=== PATIENT | female | born 1970 | race Caucasian/White ===

== ENCOUNTER 2017-05-03 14:15 | Observation (INO) | payer OTHER ==
[2017-05-03 14:22] VITALS: BMI 19.5
[2017-05-03] MEDS ORDERED: ONDANSETRON 4 MG/2 ML VIAL IVPB ONE (14:26)
[2017-05-03] MEDS ORDERED: SODIUM CHLORIDE 1,000 ML IV ONE ×2 (14:26→18:08)
[2017-05-03] MEDS ORDERED: morphine CARPU-JECT 4 MG/1 ML DISP.SYRIN IVPUSH ONE (14:26)
[2017-05-03] MEDS ORDERED: FAMOTIDINE 20 MG/50 ML IVPB 50 ML IVPB ONE ×2 (14:26→14:42)
--- NOTE | 2017-05-03 14:28 | PDOC ---
History of Present Illness <Jc Cr - Last Filed: 05/03/17 19:17> - General History Source: Patient Exam Limitations: No Limitations - History of Present Illness Initial Comments: 05/03/17 14:44 46 y/o F with a PMHx of chronic gastritis, HTN, cholecystectomy (2007) presents to the ED complaining of severe RUQ pain and vomiting. She states that she cannot keep food or liquid down. She reports associated constipation, and reports her last BM was 6 days ago. Patient reports she had similar symptoms last week and was brought to [facility] via EMS for the pain. She was admitted 6 days ago for her pain and vomiting. According to records, she also had WBCs at 26.8, 16.7 then back to 25 again during her stay last week. She received a CT scan last week at [facility], which showed no abnormalities. She reports she was given antibiotics for her high white count, to treat a possible UTI. She reports that prior to 2 weeks ago, her last gastritis flare up was 2 years ago. Patient is a current smoker, and occasional drinker. The patient denies chest pain, shortness of breath, palpitations, headache and dizziness. The patient denies fever, chills.The patient denies dysuria, frequency, urgency, and hematuria. <Barbra Noel - Last Filed: 05/03/17 19:31> - General Chief Complaint: Pain Stated Complaint: ABD PAIN Time Seen by Provider: 05/03/17 14:15 Past History - Past Medical History GI Disorders: Yes (GASTRITIS) HTN: Yes - Surgical History Cholecystectomy: Yes - Psycho/Social/Smoking Cessation Hx Anxiety: No Suicidal Ideation: No Smoking History: Current every day smoker Have you smoked in the past 12 months: Yes Number of Cigarettes Smoked Daily: 7 Information on smoking cessation initiated: No Hx Alcohol Use: (occasional) <Jc Cr - Last Filed: 05/03/17 19:17> <Barbra Noel - Last Filed: 05/03/17 19:31> - Past Medical History Allergies/Adverse Reactions: Allergies Allergy/AdvReac Type Severity Reaction Status Date / Time No Known Allergies Allergy Verified 05/03/17 14:15 Home Medications: Ambulatory Orders NK [No Known Home Medication] 05/03/17 Review of Systems - Review of Systems Constitutional: Yes: Chills. No: Fever Respiratory: No: Cough, Shortness of Breath Cardiac (ROS): No: Chest Pain ABD/GI: Yes: See HPI, Nausea, Vomiting : No: Dysuria All Other Systems: Reviewed and Negative <TayoJc - Last Filed: 05/03/17 19:17> *Physical Exam - Vital Signs Last Vital Signs Temp Pulse Resp BP Pulse Ox 98.3 F 82 18 158/119 100 05/03/17 14:15 05/03/17 14:15 05/03/17 14:15 05/03/17 14:15 05/03/17 14:15 <Jc Cr - Last Filed: 05/03/17 19:17> - Vital Signs Last Vital Signs Temp Pulse Resp BP Pulse Ox 98.3 F 82 18 158/119 100 05/03/17 14:15 05/03/17 14:15 05/03/17 14:15 05/03/17 14:15 05/03/17 14:15 - Physical Exam Comments: 05/03/17 14:45 GENERAL: The patient is awake, alert, and fully oriented, moderate distress, tearful. HEAD: Normal with no signs of trauma. EYES: Pupils equal, round and reactive to light, extraocular movements intact, sclera anicteric, conjunctiva clear with no pallor. ENT: Ears normal, nares patent, oropharynx clear without exudates. Dry mucous membranes. NECK: Normal range of motion, supple without lymphadenopathy, JVD, or masses. LUNGS: Breath sounds equal, clear to auscultation bilaterally. No wheeze/ crackles. HEART: Regular rate and rhythm, normal S1 and S2 without murmur or rub. ABDOMEN: Tender across upper region. Soft/nondistended. BS are normal to decreased. No guarding or rebound. No palpable masses. No hepatosplenomegaly. EXTREMITIES: Normal range of motion, no edema. No clubbing or cyanosis. No cords, erythema, or tenderness. NEUROLOGICAL: Cranial nerves II through XII grossly intact. Normal speech, normal gait. PSYCH: Normal mood, normal affect. SKIN: Warm, Dry, normal turgor, no rashes or lesions noted. <Barbra Noel - Last Filed: 05/03/17 19:31> Heart Score/ECG Review #1 ECG reviewed & interpreted by me at: 14:39 General ECG Interpretation: Sinus Rhythm, Normal Rate (100), Normal Intervals ( QTC prolonged at 516), No acute ischemic changes #2 ECG reviewed & interpreted by me at: 18:20 General ECG Interpretation: Sinus Rhythm, Normal Rate (86), Normal Intervals ( qtc slightly improved at 497), No acute ischemic changes <Jc Cr - Last Filed: 05/03/17 19:17> ED Treatment Course - LABORATORY CBC & Chemistry Diagram: 05/03/17 14:26 05/03/17 14:26 <Jc Cr - Last Filed: 05/03/17 19:17> - LABORATORY CBC & Chemistry Diagram: 05/03/17 14:26 05/03/17 14:26 - RADIOLOGY Radiograph Interpretation: 05/03/17 16:21 Abdomen X-Ray and Chest X-Ray Reported by Dr. Dudley Monterroso Impressions: Normal chest films. No free air noted. 05/03/17 19:27 Abdomen & Pelvis CT Reported by Dr. Ubaldo Graves Impression: Nondistention of the gastric antrum with suggestion of wall thickening. Further evaluation with an upper GI or CT scan of the abdomen following adequate oral contrast administration is needed. There is no evidence of small bowel obstruction. Diverticulosis coli in the proximal and mid sigmoid colon without gross evidence of acute diverticulitis. However, the sigmoid colon in inadequately distended and wall thickening cannot be entirely excluded. No free air or free fluid in the abdomen pelvis. 5 mm nonobstructing left renal stone. Status post cholecystectomy <Barbra Noel - Last Filed: 05/03/17 19:31> Medical Decision Making - Medical Decision Making 05/03/17 15:10 46-year-old female with history of chronic gastritis and hypertension status post recent admission to [facility] last week for gastritis flare presents now with exacerbation of her epigastric pain with intractable nausea/vomiting. Prior admission notable for leukocytosis but otherwise normal CAT scan results, she was discharged on antibiotics for possible UTI but not on any antacids or antiemetics. Vital signs as noted, tachycardia but afebrile. In moderate distress secondary to pain and nausea Abdomen is tender in the epigastric region without peritoneal findings 46-year-old female with acute on chronic gastritis with nonbloody/nonbilious vomiting. Unclear trigger, has not had endoscopy in 2 years, otherwise unremarkable abdominal exam without focal peritoneal findings. prolonged QT, ? 2/2 electrolyte abnormalities. (zofran given prior to EKG) Pain control, nausea control, IV fluids Labs, urinalysis, EKG Upright chest x-ray Reassess 05/03/17 16:18 White count 13.4 with normal differential, this is trending downward from her prior admission. Chemistries are within normal limits, including troponin and lipase. Lactate pending. Chest x-ray and abdominal x-ray showed no free air but there are some distended bowel loops. Given his surgical history and presentation, will rule out SBO CTAP. Patient has required multiple doses of IV opiates for pain control, will need readmission. Hospitalist called. 05/03/17 16:[address] Ochoa, accepted for inpatient tele (given QT prolongation) by Dr. Lerma. Will involve GI. Awaiting CTAP. Currently comfortable in stretcher after dilaudid 1mg IV. 05/03/17 17:38 Lactate 1.8. En route to CTAP then proceed with admission. 05/03/17 19:[address], much more comfortable. CTAP report pending. On my prelim review, no grossly dilated bowel loops so will give Reglan for recurrence of nausea. <Jc Cr - Last Filed: 05/03/17 19:17> *DC/Admit/Observation/Transfer - Discharge Dispostion Admit: Yes <Jc Cr - Last Filed: 05/03/17 19:17> - Attestations Scribe Attestion: 05/03/17 14:45 Documentation prepared by Barbra Noel, acting as medical equipment technician for Jc Cr MD. <Barbra Noel - Last Filed: 05/03/17 19:31> Diagnosis at time of Disposition: QT prolongation Gastritis Qualifiers: Gastritis type: unspecified gastritis Chronicity: chronic Gastritis bleeding: without bleeding Qualified Code(s): K29.50 - Unspecified chronic gastritis without bleeding - Discharge Dispostion Condition at time of disposition: Stable
[2017-05-03] MEDS ORDERED: ONDANSETRON 4 MG/2 ML VIAL ONE (14:42)
[2017-05-03] MEDS ORDERED: morphine CARPU-JECT 4 MG/1 ML DISP.SYRIN ONE (14:42)
[2017-05-03 15:12] LABS: BASOPHIL 1.4 % (0-2.0); EOSINOPHIL 0.3 % (0-4.5); MCH 29.9 pg (25.7-33.7); MCHC 34.4 g/dl (32.0-36.0); MEAN CELL VOLUME 86.9 fl (80-96); MEAN PLT VOLUME 8.4 fl (7.5-11.1); NEUTROPHILS 75.7 % (42.8-82.8); PLATELET COUNT 386 K/MM3 (134-434); RDW 13.1 % (11.6-15.6); WHITE BLOOD COUNT 13.4 K/mm3 (4.0-10.8)
[2017-05-03] MEDS ORDERED: HYDROmorphone HCL CARPU-JECT 1 MG/1 ML DISP.SYRIN IVPUSH ONE (15:12)
[2017-05-03] MEDS ORDERED: HYDROmorphone HCL CARPU-JECT 1 MG/1 ML DISP.SYRIN ONE ×3 (15:13→19:20)
[2017-05-03 15:28] LABS: ALBUMIN 4.3 g/dl (3.5-5.0); ALK PHOS 105 U/L (32-92); ANION GAP 12 (8-16); BILIRUBIN,TOTAL 0.7 mg/dl (0.2-1.0); CALCIUM 9.8 mg/dl (8.4-10.2); CO2 27 mmol/L (22-28); CREATININE 0.6 mg/dl (0.6-1.3); GLUCOSE,RANDOM 115 mg/dl (74-106); SGOT/AST 20 U/L (10-42); SGPT/ALT 26 U/L (10-40); TOT PROT 7.1 g/dl (6.4-8.3)
[2017-05-03] MEDS ORDERED: HYDROmorphone HCL CARPU-JECT 2 MG/1 ML DISP.SYRIN IVPUSH ONE (15:58)
[2017-05-03 16:11] LABS: TROPONIN I (DFP) < 0.03 ng/ml (0.03-0.50)
[2017-05-03 16:22] LABS: CPK 47 IU/L (26-192)
[2017-05-03] MEDS ORDERED: METOCLOPRAMIDE HCL INJECTION 10 MG/2 ML VIAL IVPB ONE (19:17)
--- NOTE | 2017-05-03 19:17 | HP ---
CHIEF COMPLAINT: Abdominal Pain, Vomiting PCP: Doctor not on Staff HISTORY OF PRESENT ILLNESS: This is a 46 y/o woman with a past medical history of Chronic Gastritis, HTN. Who presents to the ED with vomiting, left sided abdominal pain. Patient reports the nausea and vomiting occurred last in which she drank gatorade and followed a "BRAT" diet. She reports this morning the vomiting became so severe unable to keep anything down. She reports recent admission at [facility] for Gastritis and UTI. Patient denies fever, chills, cough, dizziness, SOB, CP, diarrhea, constipation, dysuria. ER course was notable for: (1) WBC 13.4, without L shift (2) EKG- NSR, possible left atrial enlargement, Prolonged QTc 516ms (3) Cardiac Enzymes- negative Recent Travel: None PAST MEDICAL HISTORY: Chronic Gastritis HTN PAST SURGICAL HISTORY: Cholescystectomy Social History: Smoking: Current 1PPD Alcohol: Social Drugs: Occasional, Marijuana Family History: Father: Cardiac [place], Stroke, age 50 Mother: Cardiac- PM, age 67 Sister: Breast Ca Sister: Intestinal Condition, type unknown Allergies No Known Allergies Allergy (Verified 05/03/17 14:15) HOME MEDICATIONS: Home Medications Medication Instructions Recorded NK [No Known Home Medication] 05/03/17 REVIEW OF SYSTEMS CONSTITUTIONAL: loss of appetite Absent: fever, chills, diaphoresis, generalized weakness, malaise, weight change HEENT: Absent: rhinorrhea, nasal congestion, throat pain, throat swelling, difficulty swallowing, mouth swelling, ear pain, eye pain, visual changes CARDIOVASCULAR: Absent: chest pain, syncope, palpitations, irregular heart rate, lightheadedness , peripheral edema RESPIRATORY: Absent: cough, shortness of breath, dyspnea with exertion, orthopnea, wheezing, stridor, hemoptysis GASTROINTESTINAL: abdominal pain, nausea, vomiting Absent: abdominal distension, diarrhea, constipation, melena, hematochezia GENITOURINARY: Absent: dysuria, frequency, urgency, hesitancy, hematuria, flank pain, genital pain MUSCULOSKELETAL: Absent: myalgia, arthralgia, joint swelling, back pain, neck pain SKIN: Absent: rash, itching, pallor HEMATOLOGIC/IMMUNOLOGIC: Absent: easy bleeding, easy bruising, lymphadenopathy, frequent infections ENDOCRINE: Absent: unexplained weight gain, unexplained weight loss, heat intolerance, cold intolerance NEUROLOGIC: Absent: headache, focal weakness or paresthesias, dizziness, unsteady gait, seizure, mental status changes, bladder or bowel incontinence PSYCHIATRIC: Absent: anxiety, depression, suicidal or homicidal ideation, hallucinations. PHYSICAL EXAMINATION GENERAL: Awake, alert, and fully oriented, in mild distress. HEAD: Normal with no signs of trauma. EYES: Pupils equal, round and reactive to light, extraocular movements intact, sclera anicteric, conjunctiva clear. No lid lag. EARS, NOSE, THROAT: Ears normal, nares patent, oropharynx clear without exudates. Dry mucous membranes. NECK: Normal range of motion, supple without lymphadenopathy, JVD, or masses. LUNGS: Breath sounds equal, clear to auscultation bilaterally. No wheezes, and no crackles. No accessory muscle use. HEART: Regular rate and rhythm, normal S1 and S2 without murmur, rub or gallop. ABDOMEN: LMQ, LLQ tenderness, hypoactive bowel sounds. Soft, not distended, no guarding, no rebound, no masses. No hepatomegaly or splenomegaly. MUSCULOSKELETAL: Normal range of motion at all joints. No bony deformities or tenderness. No CVA tenderness. UPPER EXTREMITIES: 2+ pulses, warm, well-perfused. No cyanosis. No clubbing. No peripheral edema. LOWER EXTREMITIES: 2+ pulses, warm, well-perfused. No calf tenderness. No peripheral edema. NEUROLOGICAL: Cranial nerves II-XII intact. Normal speech. Gait not observed. PSYCHIATRIC: Cooperative. Good eye contact. Appropriate mood and affect. SKIN: Warm, dry, normal turgor, no rashes or lesions noted, normal capillary refill. Laboratory Results - last 24 hr 05/03/17 05/03/17 05/03/17 14:26 14:26 14:26 WBC 13.4 H RBC 4.97 Hgb 14.9 Hct 43.2 MCV 86.9 MCH 29.9 MCHC 34.4 RDW 13.1 Plt Count 386 MPV 8.4 Neutrophils % 75.7 Lymphocytes % 16.7 Monocytes % 5.9 Eosinophils % 0.3 Basophils % 1.4 Sodium 135 L Potassium 3.7 Chloride 96 L Carbon Dioxide 27 Anion Gap 12 BUN 10 Creatinine 0.6 Creat Clearance w eGFR > 60 Random Glucose 115 H Lactic Acid Calcium 9.8 Magnesium Total Bilirubin 0.7 AST 20 ALT 26 Alkaline Phosphatase 105 H Creatine Kinase Troponin I Total Protein 7.1 Albumin 4.3 Lipase 28 Serum , Qual Negative Urine Color Cancelled Urine Appearance Cancelled Urine pH Cancelled Ur Specific [place] Cancelled Urine Protein Cancelled Urine Glucose (UA) Cancelled Urine Clinitest Cancelled Urine Ketones Cancelled Urine Blood Cancelled Urine Nitrite Cancelled Urine Bilirubin Cancelled Urine Ictotest Cancelled Prot Sulfosalicylic Acd Cancelled Urine Urobilinogen Cancelled Ur Leukocyte Esterase Cancelled 05/03/17 05/03/17 05/03/17 14:35 14:35 14:35 WBC RBC Hgb Hct MCV MCH MCHC RDW Plt Count MPV Neutrophils % Lymphocytes % Monocytes % Eosinophils % Basophils % Sodium Potassium Chloride Carbon Dioxide Anion Gap BUN Creatinine Creat Clearance w eGFR Random Glucose Lactic Acid 1.8 Calcium Magnesium 2.0 Total Bilirubin AST ALT Alkaline Phosphatase Creatine Kinase 47 Troponin I < 0.03 L Total Protein Albumin Lipase Serum , Qual Urine Color Urine Appearance Urine pH Ur Specific [place] Urine Protein Urine Glucose (UA) Urine Clinitest Urine Ketones Urine Blood Urine Nitrite Urine Bilirubin Urine Ictotest Prot Sulfosalicylic Acd Urine Urobilinogen Ur Leukocyte Esterase 05/03/17 21:10 WBC RBC Hgb Hct MCV MCH MCHC RDW Plt Count MPV Neutrophils % Lymphocytes % Monocytes % Eosinophils % Basophils % Sodium Potassium Chloride Carbon Dioxide Anion Gap BUN Creatinine Creat Clearance w eGFR Random Glucose Lactic Acid Calcium Magnesium Total Bilirubin AST ALT Alkaline Phosphatase Creatine Kinase 44 Troponin I < 0.03 L Total Protein Albumin Lipase Serum , Qual Urine Color Urine Appearance Urine pH Ur Specific [place] Urine Protein Urine Glucose (UA) Urine Clinitest Urine Ketones Urine Blood Urine Nitrite Urine Bilirubin Urine Ictotest Prot Sulfosalicylic Acd Urine Urobilinogen Ur Leukocyte Esterase ASSESSMENT/PLAN: This is a 46 y/o woman with a PMHx of: Chronic Gastritis, HTN. Placed on observation Intractable Vomiting, Gastritis for further evaluation of their emergent condition. Problem List - Problem (1) Gastritis Assessment/Plan: - Likely exacerbation from Stressors and Diet vs Renal Calculi - Patient reports having family member with Breast Ca, dietary meals consisting of fried foods - CTAP- non distention of the gastric antrum with suggestion of wall thickening. No evidence of SBO. Diverticulosis coil in the proximal and mid sigmoid without gross evidence of acute diverticulitis. No free air or free fluid in the abdomen pelvis. 5 mm non-obstructing left renal stone. s/p cholecystectomy - Continue IVF - Continue antiemetic - Continue pain management - NPO until vomiting episodes-resolved, then advance to Clear - Appreciate GI Consult - Repeat CBC, BMP in am - Replete lyes as indicated Code(s): K29.70 - GASTRITIS, UNSPECIFIED, WITHOUT BLEEDING Qualifiers: Gastritis type: unspecified gastritis Chronicity: chronic Gastritis bleeding: without bleeding Qualified Code(s): K29.50 - Unspecified chronic gastritis without bleeding (2) QT prolongation Assessment/Plan: - Continue Cardiac monitoring - Repeat EKG in am - Avoid meds that can cause prolonged QT - f/u with Cardiology in outpatient, secondary to familial hx Code(s): R94.31 - ABNORMAL ELECTROCARDIOGRAM [ECG] [EKG] (3) Renal calculus, left Assessment/Plan: - Incidental finding on CTAP - Patient is afebrile with leukocytosis, normal LA - Continue IV fluids, pain medication, Reglan prn - Strain all urine - Urinalysis, Urine Culture-pending - Flomax now, then daily - Consider Urology Consult if condition worsens or can f/u in outpatient Code(s): N20.0 - CALCULUS OF KIDNEY (4) Leukocytosis (leucocytosis) Assessment/Plan: - Likely secondary to inflammation vs Infection - Will observe and hold off on abx. - Continue IVF - Monitor vitals - Repeat CBC in am Code(s): D72.829 - ELEVATED WHITE BLOOD CELL COUNT, UNSPECIFIED (5) HTN (hypertension) Assessment/Plan: - Uncontrolled - Likely secondary to abdominal pain vs non-compliance - Will hold home meds secondary to gastric wall thickening, likely GI study in am - Hydralazine IV prn - Monitor renal function Code(s): I10 - ESSENTIAL (PRIMARY) HYPERTENSION (6) DVT prophylaxis Assessment/Plan: - OOB - SCDs Code(s): UJT2642 - Visit type - Emergency Visit Emergency Visit: Yes ED Registration Date: 05/03/17 Care time: The patient presented to the Emergency Department on the above date and was hospitalized for further evaluation of their emergent condition. - New Patient This patient is new to me today: Yes Date on this admission: 05/03/17 - Critical Care Critical Care patient: No
[2017-05-03] MEDS ORDERED: morphine CARPU-JECT 4 MG/1 ML DISP.SYRIN IVPUSH PRN (21:13)
[2017-05-03] MEDS: METOCLOPRAMIDE HCL INJECTION 10 MG/2 ML VIAL IVPB PRN (21:36)
[2017-05-03] MEDS: DEXTROSE 5%-0.45% SALINE 1,000 ML IV SCH (21:37)
[2017-05-03 21:45] LABS: CPK 44 IU/L (26-192)
[2017-05-03] MEDS: FAMOTIDINE 20 MG/50 ML IVPB 50 ML IVPB SCH (22:07)
[2017-05-03 22:13] LABS: TROPONIN I (DFP) < 0.03 ng/ml (0.03-0.50)
[2017-05-03] MEDS ORDERED: TAMSULOSIN HCL 0.4 MG CAP.ER.24H (FP) PO ONE (23:28)
[2017-05-04 08:44] LABS: URINE APPEARANCE SL.CLOUDY; URINE BILIRUBIN NEGATIVE (NEGATIVE); URINE COLOR LT.YELLOW; URINE GLUCOSE (UA) NEGATIVE (NEGATIVE)
[2017-05-04 08:45] LABS: PH,URINE 7.5 (5.0-8.0); URINE BLOOD 1+ (NEGATIVE); URINE KETONE 1+ (NEGATIVE); URINE LEUK ESTERASE NEGATIVE (NEGATIVE); URINE NITRITE NEGATIVE (NEGATIVE); URINE PROTEIN NEGATIVE (NEGATIVE)
[2017-05-04 08:46] LABS: URINE BACTERIA FEW /hpf (NONE SEEN); URINE WBC NONE SEEN /hpf (3-5)
[2017-05-04] MEDS: FAMOTIDINE 20 MG/50 ML IVPB 50 ML IVPB SCH ×2 (09:06→21:44)
[2017-05-04 09:12] LABS: CPK 42 IU/L (26-192); TROPONIN I < 0.01 ng/ml (0.00-0.05)
--- NOTE | 2017-05-04 10:30 | PN ---
Physical Exam: SUBJECTIVE: Patient seen and examined. Reports that abdominal pain has resolved. No n/v. Wants to eat. OBJECTIVE: Vital Signs Period Temp Pulse Resp BP Sys/Young Pulse Ox Last 24 Hr 97.8 F 75 16-16 145/86 100-100 GENERAL: The patient is awake, alert, and fully oriented, in no acute distress. HEAD: Normal with no signs of trauma. EYES: PERRL, extraocular movements intact, sclera anicteric, conjunctiva clear. No ptosis. ENT: Ears normal, nares patent, oropharynx clear without exudates, moist mucous membranes. NECK: Trachea midline, full range of motion, supple. LUNGS: Breath sounds equal, clear to auscultation bilaterally, no wheezes, no crackles, no accessory muscle use. HEART: Regular rate and rhythm, S1, S2 without murmur, rub or gallop. ABDOMEN: Soft, mild tenderness to deep palpation in LUQ, nondistended, normoactive bowel sounds, no guarding, no rebound, no hepatosplenomegaly, no masses. EXTREMITIES: 2+ pulses, warm, well-perfused, no edema. NEUROLOGICAL: Cranial nerves II through XII grossly intact. Normal speech, gait not observed. PSYCH: Normal mood, normal affect. SKIN: Warm, dry, normal turgor, no rashes or lesions noted Laboratory Results - last 24 hr 05/03/17 05/04/17 05/04/17 21:10 01:43 01:43 Creatine Kinase 44 42 Troponin I < 0.03 L < 0.01 Urine Color Lt.yellow Urine Appearance Sl.cloudy Urine pH 7.5 Urine Protein Negative Urine Glucose (UA) Negative Urine Ketones 1+ H Urine Blood 1+ H Urine Nitrite Negative Urine Bilirubin Negative Urine Urobilinogen 1.0 Ur Leukocyte Esterase Negative Urine RBC 3-5 Urine WBC None seen Ur Epithelial Cells Few Urine Bacteria Few Active Medications Generic Name Dose Route Start Last Admin Trade Name Freq PRN Reason Stop Dose Admin Dextrose/Sodium Chloride 1,000 mls @ 100 mls/hr 05/03/17 19:30 05/03/17 21:37 D5-1/2ns - IV 100 mls/hr ASDIR ANGELINE Administration Famotidine/Sodium Chloride 50 mls @ 100 mls/hr 05/03/17 22:00 05/04/17 09:06 Pepcid 20 Mg Premixed Ivpb - IVPB 100 mls/hr BID ANGELINE Administration Metoclopramide HCl 10 mg 05/03/17 21:14 05/03/17 21:36 Reglan Injection - IVPB 10 mg Q6H PRN Administration NAUSEA AND/OR VOMITING Morphine Sulfate 4 mg 05/03/17 21:13 Morphine Injection - IVPUSH Q6H PRN PAIN Tamsulosin HCl 0.4 mg 05/05/17 08:30 Flomax - PO DAILY@0830 [facility]: CTAP 05/03: Nondistention of the gastric antrum with suggestion of wall thickiening. No obstruction. Diveritculosis without diverticulitis. 5mm non- obstructing stone in the left renal pole; no hydroureteronephrosis or ureteral stone. CXR 05/03: Normal chest ASSESSMENT/PLAN: 46 year old female with a history of gastritis and HTN placed in observation for abdominal pain and vomiting/inability to tolerate po. 1. Gastritis -Continue Pepcid, patient reports relief of symptoms with this -Reglan prn nausea/vomiting (prolonged QT, avoid Zofran) -Advance diet -GI consult is unavailable; discussed with patient need for outpatient evaluation and testing 2. Renal calculus, left -Doubt contributing to these symptoms given location in lower renal pole -Continue IV fluids, Flomax -Patient has not been requesting analgesia 3. Leukocytosis -Stress/inflammation vs. infection -Observe off abx -Follow up CBC today 4. HTN -Was previously on Carvedilol 25mg bid and Clonidine 0.1mg bid; has not taken these for about a year -BP above goal -Will re-start Carvedilol 12.5mg bid 5. Ppx -Ambulation -SCDs DISPO: Continue observation status until tolerating diet. Visit type - Emergency Visit Emergency Visit: Yes ED Registration Date: 05/03/17 Care time: The patient presented to the Emergency Department on the above date and was hospitalized for further evaluation of their emergent condition. - New Patient This patient is new to me today: Yes Date on this admission: 05/04/17 - Critical Care Critical Care patient: No
[2017-05-04 11:41] LABS: BASOPHIL 1.1 % (0-2.0); EOSINOPHIL 1.4 % (0-4.5); MCH 29.2 pg (25.7-33.7); MCHC 32.8 g/dl (32.0-36.0); MEAN CELL VOLUME 89.1 fl (80-96); NEUTROPHILS 68.6 % (42.8-82.8); PLATELET COUNT 275 K/MM3 (134-434); RDW 13.8 % (11.6-15.6); WHITE BLOOD COUNT 10.4 K/mm3 (4.0-10.8)
[2017-05-04 12:03] LABS: ANION GAP 6 (8-16); CALCIUM 8.5 mg/dl (8.4-10.2); CO2 24 mmol/L (22-28); CREATININE 0.4 mg/dl (0.6-1.3); GLUCOSE,RANDOM 120 mg/dl (74-106)
[2017-05-04] MEDS ORDERED: POTASSIUM CHLORIDE ORAL LIQUID 20 MEQ/15 ML PO ONE (15:16)
[2017-05-04] MEDS ORDERED: POTASSIUM CHLORIDE TABS 20 MEQ TABLET.ER (FP) PO ONE (16:12)
--- NOTE | 2017-05-04 18:22 | EKG ---
Test Reason : Blood Pressure : / mmHG Vent. Rate : 074 BPM Atrial Rate : 074 BPM P-R Int : 164 ms QRS Dur : 082 ms QT Int : 406 ms P-R-T Axes : 068 067 060 degrees QTc Int : 450 ms SINUS RHYTHM WITH MARKED SINUS ARRHYTHMIA Minimal RVCD WHEN COMPARED WITH ECG OF 03-MAY-2017 18:20, NO SIGNIFICANT CHANGE WAS FOUND Confirmed by MD TOMAS, SHELBY ([id number]) on 05/04/2017 6:21:48 PM Referred By: JANELL ROGEL Confirmed By:SHELBY MARIN MD
--- NOTE | 2017-05-04 18:22 | EKG ---
Test Reason : Blood Pressure : / mmHG Vent. Rate : 086 BPM Atrial Rate : 086 BPM P-R Int : 168 ms QRS Dur : 092 ms QT Int : 416 ms P-R-T Axes : 081 074 070 degrees QTc Int : 497 ms NORMAL SINUS RHYTHM PROLONGED QT WHEN COMPARED WITH ECG OF 03-MAY-2017 14:39, NO SIGNIFICANT CHANGE WAS FOUND Confirmed by MD MARIN MARJORY ([id number]) on 05/04/2017 6:22:33 PM Referred By: DR RESENDIZ Confirmed By:SHELBY MARIN MD
--- NOTE | 2017-05-04 18:23 | EKG ---
Test Reason : Blood Pressure : / mmHG Vent. Rate : 100 BPM Atrial Rate : 100 BPM P-R Int : 138 ms QRS Dur : 076 ms QT Int : 400 ms P-R-T Axes : 084 080 072 degrees QTc Int : 516 ms NORMAL SINUS RHYTHM POSSIBLE LEFT ATRIAL ENLARGEMENT PROLONGED QT NO PREVIOUS ECGS AVAILABLE Confirmed by MD TOMAS, SHELBY ([id number]) on 05/04/2017 6:22:43 PM Referred By: MIR RESENDIZ Confirmed By:SHELBY MARIN MD
[2017-05-04] MEDS: CARVEDILOL 12.5 MG TABLET (FP) PO SCH (21:44)
[2017-05-04] MEDS: DEXTROSE 5%-0.45% SALINE 1,000 ML IV SCH (21:44)
--- NOTE | 2017-05-05 08:17 | PN ---
Physical Exam: SUBJECTIVE: Patient seen and examined. Abdominal pain and vomiting after attempting to eat a full diet. Complaining of no BM x 1 week. OBJECTIVE: K 3.2, repleted. Vital Signs Period Temp Pulse Resp BP Sys/Young Pulse Ox Last 24 Hr 98.1 F-98.5 F 73-92 16-18 127-145/62-88 96-99 GENERAL: The patient is awake, alert, and fully oriented, in no acute distress. HEAD: Normal with no signs of trauma. EYES: PERRL, extraocular movements intact, sclera anicteric, conjunctiva clear. No ptosis. ENT: Ears normal, nares patent, oropharynx clear without exudates, moist mucous membranes. NECK: Trachea midline, full range of motion, supple. LUNGS: Breath sounds equal, clear to auscultation bilaterally, no wheezes, no crackles, no accessory muscle use. HEART: Regular rate and rhythm, S1, S2 without murmur, rub or gallop. ABDOMEN: Soft, mild LUQ tenderness to deep palpation, nondistended, normoactive bowel sounds, no guarding, no rebound, no hepatosplenomegaly, no masses. No CVA tenderness. EXTREMITIES: 2+ pulses, warm, well-perfused, no edema. NEUROLOGICAL: Cranial nerves II through XII grossly intact. Normal speech, gait not observed. PSYCH: Normal mood, normal affect. SKIN: Warm, dry, normal turgor, no rashes or lesions noted Laboratory Results - last 24 hr Laboratory Last Values WBC 9.7 K/mm3 (4.0-10.8) 05/05/17 07:30 RBC 4.06 M/mm3 (3.60-5.2) 05/05/17 07:30 Hgb 12.3 GM/dl (10.7-15.3) 05/05/17 07:30 Hct 36.5 % (32.4-45.2) 05/05/17 07:30 MCV 90.0 fl (80-96) 05/05/17 07:30 MCH 30.3 pg (25.7-33.7) 05/05/17 07:30 MCHC 33.7 g/dl (32.0-36.0) 05/05/17 07:30 RDW 13.8 % (11.6-15.6) 05/05/17 07:30 Plt Count 288 K/MM3 (134-434) 05/05/17 07:30 MPV 8.5 fl (7.5-11.1) 05/05/17 07:30 Neutrophils % 64.7 % (42.8-82.8) 05/05/17 07:30 Lymphocytes % 24.0 % (8-40) 05/05/17 07:30 Monocytes % 8.5 % (3.8-10.2) 05/05/17 07:30 Eosinophils % 2.0 % (0-4.5) 05/05/17 07:30 Basophils % 0.8 % (0-2.0) 05/05/17 07:30 Sodium 137 mmol/L (136-145) 05/05/17 07:30 Potassium 4.0 mmol/L (3.5-5.1) D 05/05/17 07:30 Chloride 106 mmol/L (98-107) 05/05/17 07:30 Carbon Dioxide 25 mmol/L (22-28) 05/05/17 07:30 Anion Gap 6 (8-16) L 05/05/17 07:30 BUN < 4 mg/dl (7-18) L D 05/05/17 07:30 Creatinine 0.6 mg/dl (0.6-1.3) D 05/05/17 07:30 Creat Clearance w eGFR > 60 (>60) 05/03/17 14:26 Random Glucose 133 mg/dl (74-106) H 05/05/17 07:30 Lactic Acid 1.8 mmol/L (0.4-2.0) 05/03/17 14:35 Calcium 8.9 mg/dl (8.4-10.2) 05/05/17 07:30 Phosphorus 3.0 mg/dl (2.5-4.6) 05/04/17 10:57 Magnesium 2.0 mg/dL (1.8-2.4) 05/03/17 14:35 Total Bilirubin 0.7 mg/dl (0.2-1.0) 05/03/17 14:26 AST 20 U/L (10-42) 05/03/17 14:26 ALT 26 U/L (10-40) 05/03/17 14:26 Alkaline Phosphatase 105 U/L (32-92) H 05/03/17 14:26 Creatine Kinase 42 IU/L (26-192) 05/04/17 01:43 Troponin I < 0.01 ng/ml (0.00-0.05) 05/04/17 01:43 Total Protein 7.1 g/dl (6.4-8.3) 05/03/17 14:26 Albumin 4.3 g/dl (3.5-5.0) 05/03/17 14:26 Lipase 28 U/L (22-51) 05/03/17 14:26 Serum , Qual Negative 05/03/17 14:26 Urine Color Lt.yellow 05/04/17 01:43 Urine Appearance Sl.cloudy 05/04/17 01:43 Urine pH 7.5 (5.0-8.0) 05/04/17 01:[address] Cancelled 05/03/17 14:26 Urine Protein Negative (NEGATIVE) 05/04/17 01:43 Urine Glucose (UA) Negative (NEGATIVE) 05/04/17 01:43 Urine Clinitest Cancelled 05/03/17 14:26 Urine Ketones 1+ (NEGATIVE) H 05/04/17 01:43 Urine Blood 1+ (NEGATIVE) H 05/04/17 01:43 Urine Nitrite Negative (NEGATIVE) 05/04/17 01:43 Urine Bilirubin Negative (NEGATIVE) 05/04/17 01:43 Urine Ictotest Cancelled 05/03/17 14:26 Prot Sulfosalicylic Acd Cancelled 05/03/17 14:26 Urine Urobilinogen 1.0 mg/dL (0.2-1.0) 05/04/17 01:43 Ur Leukocyte Esterase Negative (NEGATIVE) 05/04/17 01:43 Urine RBC 3-5 /hpf (0-3) 05/04/17 01:43 Urine WBC None seen /hpf (3-5) 05/04/17 01:43 Ur Epithelial Cells Few /hpf (FEW) 05/04/17 01:43 Urine Bacteria Few /hpf (NONE SEEN) 05/04/17 01:43 Microbiology 05/04/17 01:43 Urine - Urine - Catheterized Urine Culture - Preliminary Lactose Fermenting Neg Bacilli Active Medications Generic Name Dose Route Start Last Admin Trade Name Freq PRN Reason Stop Dose Admin Carvedilol 12.5 mg 05/04/17 22:00 05/04/17 21:44 Coreg - PO 12.5 mg BID ANGELINE Administration Docusate Sodium 100 mg 05/05/17 07:30 Colace - PO TID ANGELINE Dextrose/Sodium Chloride 1,000 mls @ 100 mls/hr 05/03/17 19:30 05/04/17 21:44 D5-1/2ns - IV 100 mls/hr ASDIR ANGELINE Administration Famotidine/Sodium Chloride 50 mls @ 100 mls/hr 05/03/17 22:00 05/04/17 21:44 Pepcid 20 Mg Premixed Ivpb - IVPB 100 mls/hr BID ANGELINE Administration Metoclopramide HCl 10 mg 05/03/17 21:14 05/03/17 21:36 Reglan Injection - IVPB 10 mg Q6H PRN Administration NAUSEA AND/OR VOMITING Oxycodone HCl 5 mg 05/04/17 11:01 Roxicodone - PO Q6H PRN PAIN Polyethylene Glycol 17 gm 05/05/17 07:30 Miralax (For Daily Use) - PO DAILY ANGELINE Tamsulosin HCl 0.4 mg 05/05/17 08:30 Flomax - PO DAILY@0830 [facility] IMAGING: CTAP 05/03: Nondistention of the gastric antrum with suggestion of wall thickiening. No obstruction. Diveritculosis without diverticulitis. 5mm non- obstructing stone in the left renal pole; no hydroureteronephrosis or ureteral stone. CXR 05/03: Normal chest ASSESSMENT/PLAN: 46 year old female with a history of gastritis and HTN placed in observation for abdominal pain and vomiting/inability to tolerate po. 1. Gastritis -Continue Pepcid, patient reports relief of symptoms with this -Reglan prn nausea/vomiting (prolonged QT, avoid Zofran) -GI consult is unavailable; discussed with patient need for outpatient evaluation and testing and she is amenable to this plan 2. Renal calculus, left -Persistent left-sided abdominal pain and today with positive urine culture; will consult urology -Continue IV fluids, Flomax -Prn oxycodone 3. Leukocytosis -Stress/inflammation vs. infection -Observe off abx -Follow up CBC today 4. HTN -Carvedilol re-started at half patient's previous dose with good control of BP -Will dc on this regimen 5. Ppx -Ambulation -SCDs DISPO: Anticipate dc today if able to have BM. Visit type - Emergency Visit Emergency Visit: Yes ED Registration Date: 05/03/17 Care time: The patient presented to the Emergency Department on the above date and was hospitalized for further evaluation of their emergent condition. - New Patient This patient is new to me today: No - Critical Care Critical Care patient: No
[2017-05-05 08:23] LABS: BASOPHIL 0.8 % (0-2.0); MCH 30.3 pg (25.7-33.7); MCHC 33.7 g/dl (32.0-36.0); MEAN PLT VOLUME 8.5 fl (7.5-11.1); NEUTROPHILS 64.7 % (42.8-82.8); PLATELET COUNT 288 K/MM3 (134-434); RDW 13.8 % (11.6-15.6); WHITE BLOOD COUNT 9.7 K/mm3 (4.0-10.8)
[2017-05-05 08:26] LABS: ANION GAP 6 (8-16); CALCIUM 8.9 mg/dl (8.4-10.2); CO2 25 mmol/L (22-28); CREATININE 0.6 mg/dl (0.6-1.3); GLUCOSE,RANDOM 133 mg/dl (74-106)
[2017-05-05] MEDS ORDERED: morphine CARPU-JECT 2 MG/1 ML DISP.SYRIN IVPUSH ONE ×2 (08:51→14:38)
[2017-05-05] MEDS: POLYETHYLENE GLYCOL 3350 119 GM BTL PO SCH (09:09)
[2017-05-05] MEDS: DOCUSATE SODIUM 100 MG CAPSULE (FP) PO SCH ×3 (09:09→21:48)
[2017-05-05] MEDS: TAMSULOSIN HCL 0.4 MG CAP.ER.24H (FP) PO SCH (09:10)
[2017-05-05] MEDS: CARVEDILOL 12.5 MG TABLET (FP) PO SCH ×2 (09:11→21:48)
[2017-05-05] MEDS: METOCLOPRAMIDE HCL INJECTION 10 MG/2 ML VIAL IVPB PRN (09:11)
[2017-05-05] MEDS: FAMOTIDINE 20 MG/50 ML IVPB 50 ML IVPB SCH ×2 (09:11→21:48)
[2017-05-05] MEDS ORDERED: CEFTRIAXONE 1 GM in DEXTROSE 5%-WATER - 50 ML IVPB SCH (10:45)
[2017-05-05] MEDS: DICYCLOMINE HCL 10 MG CAPSULE PO PRN ×3 (12:10→22:58)
[2017-05-05] MEDS: CEFTRIAXONE 50 ML IVPB SCH (13:51)
[2017-05-05] MEDS ORDERED: morphine CARPU-JECT 2 MG/1 ML DISP.SYRIN ONE (14:33)
[2017-05-05] MEDS: oxyCODONE HCL 5 MG TABLET PO PRN ×2 (17:19→22:58)
[2017-05-05] MEDS: DEXTROSE 5%-0.45% SALINE 1,000 ML IV SCH (21:48)
[2017-05-06] MEDS: oxyCODONE HCL 5 MG TABLET PO PRN (06:06)
[2017-05-06] MEDS: DICYCLOMINE HCL 10 MG CAPSULE PO PRN (06:06)
[2017-05-06] MEDS: DOCUSATE SODIUM 100 MG CAPSULE (FP) PO SCH ×2 (06:06→14:45)
--- NOTE | 2017-05-06 07:49 | PN ---
Physical Exam: SUBJECTIVE: Patient seen and examined. Patient has been unable to tolerate food - complains of severe LUQ pain and vomits every time she eats. Feels that she has a "lump" in the LUQ. No BM x 8 days but is passing gas. Has been able to drink fluids. Required IV morphine overnight. OBJECTIVE: Hospital day #3 for this 46 year old female with a history of gastritis and HTN placed in observation on 05/03 with abdominal pain, vomiting, and inability to tolerate PO. S/p admission at [facility] 04/27-05/05 for same symptoms; had CTAP at that time showing renal stone but no other acute pathology, was given "painkillers" and abx for UTI but reports no other testing or interventions. Vital Signs Period Temp Pulse Resp BP Sys/Young Pulse Ox Last 24 Hr 97.9 F-98.3 F 72-81 18-20 106-127/65-79 97-100 GENERAL: The patient is awake, alert, and fully oriented, in no acute distress. HEAD: Normal with no signs of trauma. EYES: PERRL, extraocular movements intact, sclera anicteric, conjunctiva clear. No ptosis. ENT: Ears normal, nares patent, oropharynx clear without exudates, moist mucous membranes. NECK: Trachea midline, full range of motion, supple. LUNGS: Breath sounds equal, clear to auscultation bilaterally, no wheezes, no crackles, no accessory muscle use. HEART: Regular rate and rhythm, S1, S2 without murmur, rub or gallop. ABDOMEN: Soft, tender to deep palpation in LUQ, nondistended, normoactive bowel sounds, no guarding, no rebound, no hepatosplenomegaly, no masses. EXTREMITIES: 2+ pulses, warm, well-perfused, no edema. NEUROLOGICAL: Cranial nerves II through XII grossly intact. Normal speech, gait not observed. PSYCH: Normal mood, normal affect. SKIN: Warm, dry, normal turgor, no rashes or lesions noted Laboratory Results - last 24 hr 05/05/17 05/05/17 07:30 07:30 WBC 9.7 RBC 4.06 Hgb 12.3 Hct 36.5 MCV 90.0 MCH 30.3 MCHC 33.7 RDW 13.8 Plt Count 288 MPV 8.5 Neutrophils % 64.7 Lymphocytes % 24.0 Monocytes % 8.5 Eosinophils % 2.0 Basophils % 0.8 Sodium 137 Potassium 4.0 D Chloride 106 Carbon Dioxide 25 Anion Gap 6 L BUN < 4 L D Creatinine 0.6 D Random Glucose 133 H Calcium 8.9 Active Medications Generic Name Dose Route Start Last Admin Trade Name Freq PRN Reason Stop Dose Admin Carvedilol 12.5 mg 05/04/17 22:00 05/05/17 21:48 Coreg - PO 12.5 mg BID ANGELINE Administration Dicyclomine HCl 20 mg 05/05/17 12:02 05/06/17 06:06 Bentyl - PO 20 mg Q6H PRN Administration IRRITABLE BOWEL Docusate Sodium 100 mg 05/05/17 07:30 05/06/17 06:06 Colace - PO 100 mg TID ANGELINE Administration Dextrose/Sodium Chloride 1,000 mls @ 100 mls/hr 05/03/17 19:30 05/05/17 21:48 D5-1/2ns - IV 100 mls/hr ASDIR ANGELINE Administration Famotidine/Sodium Chloride 50 mls @ 100 mls/hr 05/03/17 22:00 05/05/17 21:48 Pepcid 20 Mg Premixed Ivpb - IVPB 100 mls/hr BID ANGELINE Administration Ceftriaxone Sodium 50 mls @ 100 mls/hr 05/05/17 12:45 05/05/17 13:51 Rocephin 1gm Ivpb (Pre-Docked) IVPB 100 mls/hr DAILY ANGELINE Administration Metoclopramide HCl 10 mg 05/03/17 21:14 05/05/17 09:11 Reglan Injection - IVPB 10 mg Q6H PRN Administration NAUSEA AND/OR VOMITING Oxycodone HCl 5 mg 05/04/17 11:01 05/06/17 06:06 Roxicodone - PO 5 mg Q6H PRN Administration PAIN Polyethylene Glycol 17 gm 05/05/17 07:30 05/05/17 09:09 Miralax (For Daily Use) - PO 17 gm DAILY ANGELINE Administration Tamsulosin HCl 0.4 mg 05/05/17 08:30 05/05/17 09:10 Flomax - PO 0.4 mg DAILY@0830 ANGELINE Administration IMAGING: CTAP 05/03: Nondistention of the gastric antrum with suggestion of wall thickiening. No obstruction. Diveritculosis without diverticulitis. 5mm non- obstructing stone in the left renal pole; no hydroureteronephrosis or ureteral stone. CXR 05/03: Normal chest ASSESSMENT/PLAN: 46 year old female with a history of gastritis and HTN placed in observation for abdominal pain and vomiting/inability to tolerate po. 1. Abdominal pain -Associated with 50lb weight loss this year; patient is unclear about whether this was intentional or not -Continue Pepcid, patient reports some relief of symptoms with this -Reglan prn nausea/vomiting (prolonged QT, avoid Zofran) -Advance diet as tolerated -Constipation: Miralax, colace, encourage ambulation/activity. Normal bowel sounds, soft abdomen, passing gas; low suspicion for obstruction. -Arrange GI consult as inpatient now that patient is having persistent symptoms and is unable to tolerate regular diet 2. Renal calculus, left -Doubt contributing to these symptoms given location in lower renal pole, but have requested urology evaluation given persistent pain an positive urine culture -Treat UTI -Continue IV fluids, Flomax 3. UTI -Ceftriaxone 1g IVPB daily 4. HTN -Was previously on Carvedilol 25mg bid and Clonidine 0.1mg bid; has not taken these for about a year -Re-started Carvedilol 12.5mg bid with good control of BP; will dc on this regimen 5. Ppx -Ambulation -SCDs DISPO: Continue observation status until tolerating diet. Addendum 1:00pm: Patient was able to tolerate full diet including fish, baked potato, and toast. Feels well and denies pain or nausea. Was able to have BM after enema. Patient now requesting to be discharged and follow up with GI as outpatient. She understands that she will likely need further testing including endoscopy/colonoscopy. Visit type - Emergency Visit Emergency Visit: Yes ED Registration Date: 05/03/17 Care time: The patient presented to the Emergency Department on the above date and was hospitalized for further evaluation of their emergent condition. - New Patient This patient is new to me today: No - Critical Care Critical Care patient: No - Discharge Referral Referred to [facility] Yes Physician Referral: Evangelina Byrd MD ([facility])
[2017-05-06] MEDS: CEFTRIAXONE 50 ML IVPB SCH (10:02)
[2017-05-06] MEDS: CARVEDILOL 12.5 MG TABLET (FP) PO SCH (10:02)
[2017-05-06] MEDS: FAMOTIDINE 20 MG/50 ML IVPB 50 ML IVPB SCH (10:02)
[2017-05-06] MEDS: TAMSULOSIN HCL 0.4 MG CAP.ER.24H (FP) PO SCH (10:02)
[2017-05-06] MEDS: POLYETHYLENE GLYCOL 3350 119 GM BTL PO SCH (10:02)
[2017-05-06] MEDS ORDERED: LACTOBACILLUS ACIDOPHILUS 1 EACH TAB (FP) PO SCH (10:15)
[2017-05-06] MEDS ORDERED: SODIUM PHOSPHATE/NA BIPHOS 133 ML ENEMA PR ONE (10:24)
--- NOTE | 2017-05-06 13:46 | DS ---
Physical Exam: SUBJECTIVE: Patient seen and examined OBJECTIVE: Vital Signs Period Temp Pulse Resp BP Sys/Young Pulse Ox Last 24 Hr 97.9 F-98.3 F 72-81 18-20 106-127/65-79 97-100 PHYSICAL EXAM GENERAL: The patient is awake, alert, and fully oriented, in no acute distress. HEAD: Normal with no signs of trauma. EYES: PERRL, extraocular movements intact, sclera anicteric, conjunctiva clear. ENT: Ears normal, nares patent, oropharynx clear without exudates, moist mucous membranes. NECK: Trachea midline, full range of motion, supple. LUNGS: Breath sounds equal, clear to auscultation bilaterally, no wheezes, no crackles, no accessory muscle use. HEART: Regular rate and rhythm, S1, S2 without murmur, rub or gallop. ABDOMEN: Soft, nontender, nondistended, normoactive bowel sounds, no guarding, no rebound, no hepatosplenomegaly, no masses. EXTREMITIES: 2+ pulses, warm, well-perfused, no edema. NEUROLOGICAL: Cranial nerves II through XII grossly intact. Normal speech, gait not observed. PSYCH: Normal mood, normal affect. SKIN: Warm, dry, normal turgor, no rashes or lesions noted. LABS HOSPITAL COURSE: Date of Admission:05/03/17 Date of Discharge: 05/06/17 Minutes to complete discharge: 35 Discharge Summary Reason For Visit: GASTRITIS Current Active Problems DVT prophylaxis (Acute) Gastritis (Acute) HTN (hypertension) (Acute) Leukocytosis (leucocytosis) (Acute) QT prolongation (Acute) Renal calculus, left (Acute) Condition: Stable - Instructions Diet, Activity, Other Instructions: 1. Eat a bland diet (instructions enclosed). 2. Take Bentyl, Reglan, and Pepcid as prescribed for nausea and abdominal pain. 3. Take Carvedilol as prescribed for blood pressure. 4. Follow up with primary care, GI, and urology (referrals enclosed). 5. Return here for severe abdominal pain, inability to keep down fluids, or any other concerning symptoms. Referrals: Evangelina Byrd MD [Staff Physician] - 2 Weeks (Local primary care physician) Jules Davis MD [Staff Physician] - 1 Week (Urology) Ezequiel Lyle MD [Staff Physician] - 1 Week (GI - call today for an appointment) - Home Medications Comprehensive Discharge Medication List: Ambulatory Orders Carvedilol [Coreg -] 12.5 mg PO BID #60 tablet 05/06/17 Dicyclomine HCl [Bentyl -] 20 mg PO Q6H #28 tablet 05/06/17 Famotidine [Pepcid] 20 mg PO DAILY #30 tablet 05/06/17 Metoclopramide HCl [Reglan] 10 mg PO Q8H PRN #20 tablet 05/06/17 This patient is new to me today: Yes Date on this admission: 05/06/17 - Discharge Referral Referred to [facility] Yes Physician Referral: Evangelina Byrd MD ([facility])
[2017-05-06 14:17] VITALS: BP 125/71; PULSE 59; TEMP 98.7
== END 2017-05-06 15:03 | disposition home or self-care (01) ==
LOC: FER 14:15 → INTOOBSV 19:00 → FM/S 19:00
PROVIDERS: ADMIT Internal Medicine; ATTEND Registered Nurse Emergency
PROC: 3E03329 Introduction of Other Anti-infective into Peripheral Vein, Percutaneous Approach (ICD-10-PCS; principal; 2017-05-03)
PROC: 3E033NZ Introduction of Analgesics, Hypnotics, Sedatives into Peripheral Vein, Percutaneous Approach (ICD-10-PCS; 2017-05-03)
PROC: 3E033GC Introduction of Other Therapeutic Substance into Peripheral Vein, Percutaneous Approach (ICD-10-PCS; 2017-05-03)
PROC: 3E0337Z Introduction of Electrolytic and Water Balance Substance into Peripheral Vein, Percutaneous Approach (ICD-10-PCS; 2017-05-03)
DX: K29.50 Unspecified chronic gastritis without bleeding (principal); I45.81 Long QT syndrome; N20.0 Calculus of kidney; D72.829 Elevated white blood cell count, unspecified; I10 Essential (primary) hypertension; F17.210 Nicotine dependence, cigarettes, uncomplicated; Z90.49 Acquired absence of other specified parts of digestive tract
CPT/HCPCS: 36415; 71020-TC; 74020-TC; 74177-TC; 80048; 80053; 81003; 81015; 83605; 83690; 83735; 84100; 84484; 84703; 85025; 87086; 87186; 93005; 99285-25; G0378

== ENCOUNTER 2017-09-02 23:35 | Observation (INO) | payer OTHER ==
[2017-09-02] MEDS ORDERED: morphine CARPU-JECT 4 MG/1 ML DISP.SYRIN IVPUSH ONE (23:42)
[2017-09-02] MEDS ORDERED: SODIUM CHLORIDE 1,000 ML IV ONE (23:42)
[2017-09-02] MEDS ORDERED: ONDANSETRON 4 MG/2 ML VIAL IVPB ONE (23:42)
[2017-09-02] MEDS ORDERED: HYOSCYAMINE SULFATE 0.125 MG *ODT PO ONE (23:43)
--- NOTE | 2017-09-02 23:43 | PDOC ---
History of Present Illness - General Chief Complaint: Pain Stated Complaint: ABDOMINAL PAIN X 2 DAYS Time Seen by Provider: 09/02/17 23:39 History Source: Patient Exam Limitations: No Limitations - History of Present Illness Initial Comments: 09/03/17 00:01 This is a 46-year-old female with history of gastritis in the past who was admitted a number years ago for gastritis however said that she never followed up and has been doing well until recently when her gastritis flared up again. Patient now comes in complaining of times this evening nausea, vomiting, epigastric pain. Patient denies any blood in her vomit or any dark or tarry stools. PAST MEDICAL HISTORY: no significant history PAST SURGICAL HISTORY: no significant history FAMILY HISTORY: no pertinant history SOCIAL HISTORY: Pt lives with family and is employed. MEDICATIONS: reviewed ALLERGIES: As per nursing notes Review of Systems General: No fevers or chills, no weakness, no weight loss HEENT: No change in vision. No sore throat,. No ear pain CardioVascular: No chest pain or shortness of breath Respiratory:No cough, or wheezing. Gastrointestinal:+ abdominal pain, + nausea, + vomitting, no diarrhea or constipation, No rectal bleeding Genitourinary: No dysuria, hematuria, or frequency Musculoskeletal: No joint or muscle pain or swelling Neurologic: No headache, vertigo, dizziness or loss of consciousness Psychiatric: nor depression Skin: No rashes or easy bruising Endocrine: no increased thirst or abnormal weight change Allergic: no skin or latex allergy All other systems reviewed and normal Exam: General: Well-nourished well-developed individual, in moderate distressormal, tonsils normal, no erythema or exudate Neck: Supple, no meningeal signs, no lymphadenopathy Eyes::Pupils equal reactive and round, extraocular motion intact Chest: Nontender to palpation Cardiac: S1-S2 normal, regular rate and rhythm, no murmurs rubs or gallops Respiratory: Lungs clear to auscultation bilateral Abdomen: Soft, nondistended, normal bowel sounds, moderately tender to palpation epigastric no guarding or rebound Rectal: Soft brown stool Extremities: Warm, dry, no cyanosis, clubbing, or edema Skin: No rashes Neuro: Alert and oriented x3, CN II - XII intact, nonfocal exam with normal strength, normal sensation, normal reflexes, normal gait, Psych: Normal mood and affect Medical decision making this is a 46-year-old female with nausea vomiting and epigastric pain. Patient has history gastritis. Will obtain workup CBC, comp, EKG, lipase, UA, urine , chest x-ray 09/03/17 00:43 EKG shows normal sinus rhythm with borderline LVH. When compared with old EKG there is no significant change. There is no acute ST-T wave changes 09/03/17 04:08 CT abdomen no acute pathology. Assessment and plan: This is a 46-year-old female who comes in complaining of nausea vomiting and epigastric pain. Patient had a workup that included a CBC That shows patient had a 27,000 white cell count. Patient's workup was otherwise unremarkable including her CAT scan that was normal. Patient will be admitted to an observation bed for observation and further evaluation of her pain and leukocytosis. Past History - Past Medical History Allergies/Adverse Reactions: Allergies Allergy/AdvReac Type Severity Reaction Status Date / Time No Known Allergies Allergy Verified 09/03/17 02:00 Home Medications: Ambulatory Orders Carvedilol [Coreg -] 12.5 mg PO BID #60 tablet 05/06/17 Dicyclomine HCl [Bentyl -] 20 mg PO Q6H #28 tablet 05/06/17 Famotidine [Pepcid] 20 mg PO DAILY #30 tablet 05/06/17 Metoclopramide HCl [Reglan] 10 mg PO Q8H PRN #20 tablet 05/06/17 Anemia: No Asthma: No Cancer: No Cardiac Disorders: No CVA: No COPD: No CHF: No Dementia: No Diabetes: No GI Disorders: Yes (GASTRITIS) Disorders: No HTN: Yes Hypercholesterolemia: No Liver Disease: No Seizures: No Thyroid Disease: No - Surgical History Cholecystectomy: Yes - Suicide/Smoking/Psychosocial Hx Smoking History: Current every day smoker Have you smoked in the past 12 months: Yes Number of Cigarettes Smoked Daily: 7 Hx Alcohol Use: (occasional) Drug/Substance Use Hx: No Hx Substance Use Treatment: No ED Treatment Course - LABORATORY CBC & Chemistry Diagram: 09/03/17 00:01 09/03/17 00:01 *DC/Admit/Observation/Transfer Diagnosis at time of Disposition: Leukocytosis Abdominal pain Qualifiers: Abdominal location: upper abdomen, unspecified Qualified Code(s): R10.10 - Upper abdominal pain, unspecified Gastritis Qualifiers: Gastritis type: unspecified gastritis Chronicity: acute Gastritis bleeding: without bleeding Qualified Code(s): K29.00 - Acute gastritis without bleeding - Discharge Dispostion Condition at time of disposition: Good Admit: Yes - Referrals - Patient Instructions - Post Discharge Activity
[2017-09-02] MEDS ORDERED: LIDOCAINE VISCOUS 2% ORAL/TOP 20 ML UNIT-DOSE CUP MM ONE (23:51)
[2017-09-02] MEDS ORDERED: FAMOTIDINE IV 20 MG/12 ML VIAL IVPB ONE (23:52)
[2017-09-02] MEDS ORDERED: ONDANSETRON 4 MG/2 ML VIAL ONE (23:55)
[2017-09-02] MEDS ORDERED: morphine SULFATE 4 MG/ML VIAL ONE (23:55)
[2017-09-03] MEDS ORDERED: morphine CARPU-JECT 4 MG/1 ML DISP.SYRIN IVPUSH ONE (00:34)
[2017-09-03] MEDS ORDERED: HYOSCYAMINE SULFATE 0.125 MG *ODT ONE (00:35)
[2017-09-03] MEDS ORDERED: FAMOTIDINE 20 MG/50 ML IVPB 20 MG/50 ML MG IVPB ONE (00:35)
[2017-09-03] MEDS ORDERED: MAG HYDROX/AL HYDROX/SIMETH 355 ML ORAL.SUSP PO ONE (00:36)
[2017-09-03] MEDS ORDERED: LIDOCAINE VISCOUS 2% ORAL/TOP 20 ML UNIT-DOSE CUP ONE (00:41)
[2017-09-03] MEDS ORDERED: MAG HYDROX/AL HYDROX/SIMETH 30 ML UNIT-DOSE CUP ONE (00:41)
[2017-09-03] MEDS ORDERED: morphine SULFATE 4 MG/ML VIAL ONE (00:50)
[2017-09-03 00:56] LABS: BASO # 0.1 # (0.1-1); MCH 29.7 pg (25.7-33.7); MEAN PLT VOLUME 8.3 fl (7.5-11.1); MONO # 1.8 # (3.8-10.2); NEUT # 23.2 # (42.8-82.8); PLATELET COUNT 398 K/MM3 (134-434); RDW 13.9 % (11.6-15.6); WHITE BLOOD COUNT 27.2 K/mm3 (4.0-10.0)
[2017-09-03 01:23] LABS: ALBUMIN 4.2 g/dl (3.4-5.0); ANION GAP 11 (8-16); CALCIUM 9.4 mg/dL (8.5-10.1); CO2 25 mmol/L (21-32); CREATININE 0.7 mg/dL (0.55-1.02); GLUCOSE,RANDOM 140 mg/dL (74-106); SGOT/AST 16 U/L (15-37); SGPT/ALT 25 U/L (12-78)
[2017-09-03 01:25] LABS: ALK PHOS 148 U/L (45-117); BILIRUBIN,TOTAL 0.4 mg/dL (0.2-1.0); TOT PROT 7.6 g/dl (6.4-8.2)
[2017-09-03 01:44] LABS: URINE APPEARANCE CLOUDY; URINE BILIRUBIN NEGATIVE (NEGATIVE); URINE BLOOD NEGATIVE (NEGATIVE); URINE COLOR YELLOW; URINE GLUCOSE (UA) NEGATIVE (NEGATIVE); URINE KETONE TRACE (NEGATIVE); URINE LEUK ESTERASE TRACE (NEGATIVE); URINE PROTEIN NEGATIVE (NEGATIVE); URINE UROBILINOGEN NEGATIVE mg/dL (0.2-1.0)
[2017-09-03 02:04] LABS: URINE NITRITE POSITIVE (NEGATIVE)
[2017-09-03 02:06] LABS: URINE MUCUS RARE; URINE RBC 1 /hpf (0-3); URINE WBC 8 /hpf (3-5)
[2017-09-03 04:03] LABS: ACANTHOCYTES 0; ANISOCYTOSIS 0; BURR CELLS 0; CABBOT RINGS 0; HELMET CELLS 0; HOWELL-JOLLY BODIES 0; HYPOCHROMIA 0; MACROCYTOSIS 0; METAMYELOCYTE 0 % (0-2); MICROCYTOSIS 0; MYELOCYTE 0 % (0-2); OVALOCYTE 0; PLATELET ESTIMATE NORMAL; POIKILOCYTOSIS 0; POLYCHROMASIA 0; REACTIVE LYMPHOCYTES 7 % (0-80); SCHISTOCYTES 0; SPHEROCYTE 0; STOMATOCYTE 0; TARGET CELLS 0; TEAR DROP CELLS 0; TOXIC GRANULATION 0
[2017-09-03 04:05] LABS: TOTAL CELLS COUNTED 100
[2017-09-03] MEDS ORDERED: METOCLOPRAMIDE HCL INJECTION 10 MG/2 ML VIAL IVPUSH PRN (04:25)
[2017-09-03] MEDS ORDERED: morphine CARPU-JECT 4 MG/1 ML DISP.SYRIN IVPUSH PRN (04:28)
[2017-09-03 04:46] VITALS: BMI 17.5
[2017-09-03] MEDS: SODIUM CHLORIDE 1,000 ML IV SCH (04:55)
[2017-09-03] MEDS: morphine CARPU-JECT 2 MG/1 ML DISP.SYRIN IVPUSH PRN ×2 (04:55→21:49)
[2017-09-03 07:51] LABS: BASO % 0.8 % (0-2.0); EOS % 0.3 % (0-4.5); MCH 30.4 pg (25.7-33.7); MCHC 33.9 g/dl (32.0-36.0); MEAN CELL VOLUME 89.6 fl (80-96); MEAN PLT VOLUME 7.9 fl (7.5-11.1); NEUT % 76.6 % (42.8-82.8); PLATELET COUNT 304 K/MM3 (134-434); RDW 12.9 % (11.6-15.6); WHITE BLOOD COUNT 15.3 K/mm3 (4.0-10.8)
[2017-09-03 08:10] LABS: AMYLASE 58 U/L (25-125); ANION GAP 5 (8-16); CALCIUM 8.3 mg/dl (8.4-10.2); CO2 23 mmol/L (22-28); CREATININE 0.5 mg/dl (0.6-1.3); GLUCOSE,RANDOM 115 mg/dl (74-106)
--- NOTE | 2017-09-03 08:46 | HP ---
CHIEF COMPLAINT:epigastric pain PCP:none HISTORY OF PRESENT ILLNESS: 46yo F with PMH gastritis and HTN presented to the ER with gnawing epigastric pain x5days. states it started all of a sudden when eating. followed by multiple episodes of vomiting. occurred intermittently over the past few days and did not occur after each time she ate. had similar episodes in April 2017 when she was here for same symptoms and went home without diagnosis. never saw GI. last BM . states she been under a lot of personal stress this past year after breaking up with a long time boyfried and been having increased stress at work the past 2 months. Denies Cp, SOB, fever, chills, C/D. does have 60 lb weight loss over the past year due to anorexia. "was tested for cancer gene and I do not have it" claims medication compliance, ER course was notable for: (1)leukocytosis (2) (3) Recent Travel:none PAST MEDICAL HISTORY:HTN and gastritis PAST SURGICAL HISTORY:cholecystectomy Social History: Smokin PPD Alcohol:occasional Drugs: occasional THC Family History:HTN, DM, CAD, breast ca (sister) Allergies No Known Allergies Allergy (Verified 09/03/17 02:00) HOME MEDICATIONS: Home Medications Medication Instructions Recorded Carvedilol [Coreg -] 12.5 mg PO BID #60 tablet 05/06/17 Dicyclomine HCl [Bentyl -] 20 mg PO Q6H #28 tablet 05/06/17 Famotidine [Pepcid] 20 mg PO DAILY #30 tablet 05/06/17 Metoclopramide HCl [Reglan] 10 mg PO Q8H PRN #20 tablet 05/06/17 REVIEW OF SYSTEMS CONSTITUTIONAL: Absent: fever, chills, diaphoresis, generalized weakness, malaise, loss of appetite, weight change HEENT: Absent: rhinorrhea, nasal congestion, throat pain, throat swelling, difficulty swallowing, mouth swelling, ear pain, eye pain, visual changes CARDIOVASCULAR: Absent: chest pain, syncope, palpitations, irregular heart rate, lightheadedness , peripheral edema RESPIRATORY: Absent: cough, shortness of breath, dyspnea with exertion, orthopnea, wheezing, stridor, hemoptysis GASTROINTESTINAL:abdominal pain,nausea, vomiting Absent: abdominal distension, , diarrhea, constipation, melena, hematochezia GENITOURINARY: Absent: dysuria, frequency, urgency, hesitancy, hematuria, flank pain, genital pain MUSCULOSKELETAL: Absent: myalgia, arthralgia, joint swelling, back pain, neck pain SKIN: Absent: rash, itching, pallor HEMATOLOGIC/IMMUNOLOGIC: Absent: easy bleeding, easy bruising, lymphadenopathy, frequent infections ENDOCRINE: Absent: unexplained weight gain, unexplained weight loss, heat intolerance, cold intolerance NEUROLOGIC: Absent: headache, focal weakness or paresthesias, dizziness, unsteady gait, seizure, mental status changes, bladder or bowel incontinence PSYCHIATRIC: anxiety, Absent: depression, suicidal or homicidal ideation, hallucinations. PHYSICAL EXAMINATION Vital Signs - 24 hr 09/02/17 09/03/17 09/03/17 23:36 02:30 04:18 Temperature 97.8 F 98.4 F Pulse Rate 98 H 85 Pulse Rate [ 88 Left Radial] Respiratory 18 18 20 Rate Blood Pressure 185/102 154/87 Blood Pressure 136/84 [Left Arm] O2 Sat by Pulse 99 99 100 Oximetry (%) 09/03/17 09/03/17 09/03/17 04:20 04:22 06:23 Temperature 98.4 F 98.4 F 98.6 F Pulse Rate 84 72 Pulse Rate [ 86 Left Radial] Respiratory 16 16 20 Rate Blood Pressure 156/86 143/74 Blood Pressure 138/78 [Left Arm] O2 Sat by Pulse 99 99 Oximetry (%) 09/03/17 08:05 Temperature Pulse Rate Pulse Rate [ Left Radial] Respiratory 16 Rate Blood Pressure Blood Pressure [Left Arm] O2 Sat by Pulse 98 Oximetry (%) GENERAL: + anxious and tearful during interview. HEAD: Normal with no signs of trauma. EYES: Pupils equal, round and reactive to light, extraocular movements intact, sclera anicteric, conjunctiva clear. No lid lag. EARS, NOSE, THROAT: Ears normal, nares patent, oropharynx clear without exudates. Moist mucous membranes. NECK: Normal range of motion, supple without lymphadenopathy, JVD, or masses. LUNGS: Breath sounds equal, clear to auscultation bilaterally. No wheezes, and no crackles. No accessory muscle use. HEART: Regular rate and rhythm, normal S1 and S2 without murmur, rub or gallop. ABDOMEN: Soft, nontender, not distended, normoactive bowel sounds, no guarding, no rebound, no masses. No hepatomegaly or splenomegaly. MUSCULOSKELETAL: Normal range of motion at all joints. No bony deformities or tenderness. No CVA tenderness. UPPER EXTREMITIES: 2+ pulses, warm, well-perfused. No cyanosis. No clubbing. No peripheral edema. LOWER EXTREMITIES: 2+ pulses, warm, well-perfused. No calf tenderness. No peripheral edema. NEUROLOGICAL: Cranial nerves II-XII intact. Normal speech. Normal gait. PSYCHIATRIC: Cooperative. Good eye contact. Appropriate mood and affect. SKIN: Warm, dry, normal turgor, no rashes or lesions noted, normal capillary refill. Laboratory Results - last 24 hr 09/03/17 09/03/17 09/03/17 00:01 00:01 00:01 WBC 27.2 H RBC 4.80 Hgb 14.2 Hct 43.2 MCV 90.0 MCH 29.7 MCHC 33.0 RDW 13.9 Plt Count 398 MPV 8.3 Total Counted 100 Neutrophils % Spirits Model Neutrophils % (Manual) 76.2 Band Neutrophils % 2.0 Lymphocytes % Spirits Model Lymphocytes % (Manual) 8.9 Monocytes % Spirits Model Monocytes % (Manual) 4 Eosinophils % Spirits Model Eosinophils % (Manual) 0.0 Basophils % Spirits Model Basophils % (Manual) 2.0 Myelocytes % (Man) 0 Metamyelocytes 0 Hypochromia 0 Toxic Granulation 0 Dohle Bodies 0 Platelet Estimate Normal Polychromasia 0 Poikilocytosis 0 Basophilic Stippling 0 Anisocytosis 0 Microcytosis 0 Macrocytosis 0 Spherocytes 0 Sickle Cells 0 Target Cells 0 Tear Drop Cells 0 Ovalocytes 0 Stomatocytes 0 Helmet Cells 0 [place] Bodies 0 [place] Rings 0 Louie Cells 0 Acanthocytes (Spur) 0 Fragmented RBCs 0 Schistocytes 0 Sodium 136 Potassium 4.0 Chloride 100 Carbon Dioxide 25 Anion Gap 11 BUN 12 Creatinine 0.7 Creat Clearance w eGFR > 60 Random Glucose 140 H Calcium 9.4 Total Bilirubin 0.4 AST 16 ALT 25 Alkaline Phosphatase 148 H Total Protein 7.6 Albumin 4.2 Total Amylase Lipase 212 Urine Color Yellow Urine Appearance Cloudy Urine pH 7.0 Ur Specific [place] 1.011 Urine Protein Negative Urine Glucose (UA) Negative Urine Ketones Trace H Urine Blood Negative Urine Nitrite Positive D Urine Bilirubin Negative Urine Urobilinogen Negative Urine WBC (Auto) 8 Urine RBC (Auto) 1 Ur Epithelial Cells Rare Urine Mucus Rare Urine HCG, Qual Negative Stool Occult Blood 09/03/17 09/03/17 09/03/17 00:01 07:35 07:35 WBC 15.3 H D RBC 3.85 Hgb 11.7 Hct 34.5 MCV 89.6 MCH 30.4 MCHC 33.9 RDW 12.9 Plt Count 304 MPV 7.9 Total Counted Neutrophils % 76.6 Neutrophils % (Manual) Band Neutrophils % Lymphocytes % 13.0 D Lymphocytes % (Manual) Monocytes % 9.3 Monocytes % (Manual) Eosinophils % 0.3 D Eosinophils % (Manual) Basophils % 0.8 Basophils % (Manual) Myelocytes % (Man) Metamyelocytes Hypochromia Toxic Granulation Dohle Bodies Platelet Estimate Polychromasia Poikilocytosis Basophilic Stippling Anisocytosis Microcytosis Macrocytosis Spherocytes Sickle Cells Target Cells Tear Drop Cells Ovalocytes Stomatocytes Helmet Cells [place] Bodies [place] Rings [place] Cells Acanthocytes (Spur) Fragmented RBCs Schistocytes Sodium 135 L Potassium 3.8 Chloride 107 Carbon Dioxide 23 Anion Gap 5 L BUN 10 D Creatinine 0.5 L Creat Clearance w eGFR Random Glucose 115 H Calcium 8.3 L Total Bilirubin AST ALT Alkaline Phosphatase Total Protein Albumin Total Amylase 58 Lipase Urine Color Urine Appearance Urine pH Ur Specific [place] Urine Protein Urine Glucose (UA) Urine Ketones Urine Blood Urine Nitrite Urine Bilirubin Urine Urobilinogen Urine WBC (Auto) Urine RBC (Auto) Ur Epithelial Cells Urine Mucus Urine HCG, Qual Stool Occult Blood Negative ASSESSMENT/PLAN: 46yo F wtih PMH gastritis and HTN presented to the ER with epigastric pain and vomiting with eating 1. Abdominal pain- medicine observation. worse with eating. concern for intestinal angina, although less likely due to hemodynamically stable. check lactic acid. CT abdomen/pelvis pending. requsting to eat. will start on full liquid diet. if unable to tolerate will make NPO. will need to see GI as outpatient if clinically improves. cont IVF, pain and nausea control 2. Leukocytosis- likely stress induced. improved with IVF. no signs of infection. no indication for abx 3. ANemia- likely dilutional. no signs of bleeding. monitor. no indication for txn 4. HTN Urgency- improved with initiation of home meds. controlled now. titrate if needed to optimize BP 5. DVT ppx- EAM 6. can likely d/c home tomorrow if tolerates diet and leukocytosis continues to improve. stressed importance of follow up and medicaiton compliance Visit type - Emergency Visit Emergency Visit: Yes ED Registration Date: 09/03/17 Care time: The patient presented to the Emergency Department on the above date and was hospitalized for further evaluation of their emergent condition. - New Patient This patient is new to me today: Yes Date on this admission: 09/03/17 - Critical Care Critical Care patient: No
[2017-09-03] MEDS: CARVEDILOL 12.5 MG TABLET (FP) PO SCH ×2 (09:34→21:37)
[2017-09-03] MEDS: NICOTINE 21 MG/24 HOURS TOPICAL PATCH TD SCH (09:34)
[2017-09-03] MEDS: FAMOTIDINE 20 MG/50 ML IVPB 20 MG/50 ML MG IVPB SCH ×2 (09:35→21:37)
[2017-09-03] MEDS ORDERED: FAMOTIDINE IV 20 MG/12 ML VIAL IVPUSH SCH (10:00)
[2017-09-03 12:35] LABS: URINE LEUK ESTERASE TRACE (NEGATIVE)
[2017-09-03 16:58] LABS: BASO # 0.1 # (0.1-1); MONO # 1.4 #; NEUT # 11.8 # (42.8-82.8)
[2017-09-03] MEDS ORDERED: MELATONIN 5 MG TABLETS PO PRN (20:49)
[2017-09-03 22:32] VITALS: TEMP 98.5
[2017-09-03] MEDS ORDERED: PT OWN MED DRAWER 7, Y5N ONE (23:21)
[2017-09-04 06:18] VITALS: BP 149/82; PULSE 74
[2017-09-04] MEDS: morphine CARPU-JECT 2 MG/1 ML DISP.SYRIN IVPUSH PRN (06:58)
[2017-09-04] MEDS: SODIUM CHLORIDE 1,000 ML IV SCH (07:02)
[2017-09-04] MEDS: CARVEDILOL 12.5 MG TABLET (FP) PO SCH (09:12)
[2017-09-04] MEDS: NICOTINE 21 MG/24 HOURS TOPICAL PATCH TD SCH (09:13)
[2017-09-04] MEDS: FAMOTIDINE 20 MG/50 ML IVPB 20 MG/50 ML MG IVPB SCH (09:23)
[2017-09-04 09:32] LABS: BASO % 0.7 % (0-2.0); EOS % 1.2 % (0-4.5); MCHC 33.3 g/dl (32.0-36.0); MEAN CELL VOLUME 90.1 fl (80-96); MEAN PLT VOLUME 8.8 fl (7.5-11.1); NEUT % 64.9 % (42.8-82.8); PLATELET COUNT 318 K/MM3 (134-434); RDW 13.2 % (11.6-15.6); WHITE BLOOD COUNT 12.8 K/mm3 (4.0-10.8)
[2017-09-04 09:35] LABS: NEUT # 8.2 # (42.8-82.8)
[2017-09-04 09:36] LABS: BASO # 0.1 # (0.1-1); EOS # 0.2 #; LYMPH # 3.3 # (8-40)
--- NOTE | 2017-09-04 13:21 | DS ---
Physical Exam: SUBJECTIVE: Patient seen and examined Pt reports abdominal pain resolved, denies N/V/D,fever, chills, cp, sob or palpitations. Pt remains very anxious. OBJECTIVE: Vital Signs Period Temp Pulse Resp BP Sys/Young Pulse Ox Last 24 Hr 98.5 F-98.6 F 60-76 18-18 148-149/79-86 97-100 PHYSICAL EXAM GENERAL: The patient is awake, alert, and fully oriented, in no acute distress. HEAD: Normal with no signs of trauma. EYES: PERRL, extraocular movements intact, sclera anicteric, conjunctiva clear. ENT: Ears normal, nares patent, oropharynx clear without exudates, moist mucous membranes. NECK: Trachea midline, full range of motion, supple. LUNGS: Breath sounds equal, clear to auscultation bilaterally, no wheezes, no crackles, no accessory muscle use. HEART: Regular rate and rhythm, S1, S2 without murmur, rub or gallop. ABDOMEN: Soft, nontender, nondistended, normoactive bowel sounds, no guarding, no rebound, no hepatosplenomegaly, no masses. EXTREMITIES: 2+ pulses, warm, well-perfused, no edema. NEUROLOGICAL: Cranial nerves II through XII grossly intact. Normal speech, gait not observed. PSYCH: Normal mood, normal affect. SKIN: Warm, dry, normal turgor, no rashes or lesions noted. LABS Laboratory Results - last 24 hr 09/04/17 06:00 WBC 12.8 H RBC 4.14 Hgb 12.4 Hct 37.3 MCV 90.1 MCH 30.0 MCHC 33.3 RDW 13.2 Plt Count 318 MPV 8.8 D Neutrophils % 64.9 Lymphocytes % 25.5 D Monocytes % 7.7 Eosinophils % 1.2 D Basophils % 0.7 CT Abdomen: Non-obstructing renal calculus, no acute pathology. HOSPITAL COURSE: Date of Admission:09/03/17 Date of Discharge: 09/04/17 This is a 46yo F with PMHx of gastritis,smoker and HTN presented to the ER with epigastric pain and vomiting with eating. Imaging rule dout acute pathology. IV Pepcid given with relief. Diet tolerated well, will continue on oral Pepcid. Recommend outpatient GI followup for EGD, hx of Advil use. Epigastic pain likely due to Advil use, r/o gastric ulcer. Advised to avoid NSAID's. * Leukocytosis- likely stress induced, now WBC normalized,no signs of infection. no indication for abx *Anemia- likely dilutional. no signs of bleeding. monitor. no indication for txn *HTN Urgency upon admission, BP stable now, will continue on home dose * Smoking : Smoking cessation counselling done, ordred Nicotine patch. Minutes to complete discharge: 45 Discharge Summary Reason For Visit: GASTRITIS/ABD. PAIN/LEUKOCYTOSIS Condition: Good - Instructions Diet, Activity, Other Instructions: Sodium controlled. Avoid Aspirin and NSAIDs( reviewed with patient). Smoking cessation counselling reinforced. If abdominal pain recur advised to get medical attention. Referrals: Evangelina Byrd MD [Staff Physician] - 2 Weeks (1-2 weeks) Dorian Santana MD [Staff Physician] - 1 Week Disposition: HOME - Home Medications Comprehensive Discharge Medication List: Ambulatory Orders Carvedilol [Coreg -] 12.5 mg PO BID #60 tablet 05/06/17 Dicyclomine HCl [Bentyl -] 20 mg PO Q6H #28 tablet 09/04/17 Famotidine [Pepcid -] 40 mg PO DAILY #30 tablet 09/04/17 Nicotine Patch [Nicoderm Patch -] 21 mg TD DAILY 30 Days patch 09/04/17 This patient is new to me today: Yes Date on this admission: 09/04/17 Emergency Visit: Yes ED Registration Date: 09/03/17 Care time: The patient presented to the Emergency Department on the above date and was hospitalized for further evaluation of their emergent condition. Critical Care patient: No - Discharge Referral Referred to [facility] Yes Physician Referral: Evnagelina Byrd MD ([facility])
--- NOTE | 2017-09-05 12:17 | EKG ---
Test Reason : Blood Pressure : / mmHG Vent. Rate : 080 BPM Atrial Rate : 080 BPM P-R Int : 146 ms QRS Dur : 088 ms QT Int : 402 ms P-R-T Axes : 086 076 074 degrees QTc Int : 463 ms NORMAL SINUS RHYTHM MODERATE VOLTAGE CRITERIA FOR LVH, MAY BE NORMAL VARIANT RSR' PATTERN IN V1 BORDERLINE ECG WHEN COMPARED WITH ECG OF 04-MAY-2017 05:47, Criteria for LVH is now present Confirmed by BINH PEREZ MD ([id number]) on 09/05/2017 12:16:37 PM Referred By: MD PRO Confirmed By:BINH PEREZ MD
== END 2017-09-04 09:05 | disposition home or self-care (01) ==
LOC: FER 23:35 → FM/S 09-03 04:18
PROVIDERS: ADMIT Internal Medicine; ATTEND Nurse Practitioner Family
PROC: 3E033NZ Introduction of Analgesics, Hypnotics, Sedatives into Peripheral Vein, Percutaneous Approach (ICD-10-PCS; principal; 2017-09-03)
PROC: 3E033GC Introduction of Other Therapeutic Substance into Peripheral Vein, Percutaneous Approach (ICD-10-PCS; 2017-09-03)
PROC: 3E0337Z Introduction of Electrolytic and Water Balance Substance into Peripheral Vein, Percutaneous Approach (ICD-10-PCS; 2017-09-03)
DX: K29.00 Acute gastritis without bleeding (principal); D72.829 Elevated white blood cell count, unspecified; I10 Essential (primary) hypertension; R10.10 Upper abdominal pain, unspecified; D64.9 Anemia, unspecified
CPT/HCPCS: 36415; 71010-TC; 74177-TC; 80048; 80053; 81003; 81015; 82150; 82272; 83605; 83690; 84703; 85025; 93005; 99285-25; G0378

== ENCOUNTER 2018-07-09 09:09 | Emergency (ER) | payer OTHER ==
[2018-07-09 09:16] VITALS: TEMP 97.6; BMI 19.7
[2018-07-09] MEDS ORDERED: SODIUM CHLORIDE 1,000 ML IV STA ×2 (09:16→11:08)
[2018-07-09] MEDS ORDERED: FAMOTIDINE 20 MG/50 ML IVPB 20 MG/50 ML MG IVPB ONE ×2 (09:17→09:39)
[2018-07-09] MEDS ORDERED: ONDANSETRON 4 MG/2 ML VIAL IVPUSH ONE ×2 (09:18→13:02)
--- NOTE | 2018-07-09 09:18 | PDOC ---
History of Present Illness - General Chief Complaint: Pain Stated Complaint: ABD PAIN, VOMITING Time Seen by Provider: 07/09/18 09:11 - History of Present Illness Initial Comments: 07/09/18 09:19 Ms. Ambrocio is a 47 yo female w/ pmh of gastritis and HTN who is s/p cholecystectomy who presents for evaluation of 4-5 day history of LUQ abdominal pain with coinciding nausea and vomiting (non-bilious non-bloody). Patient reports she has had similar presentations to this several times in the past. She elected to wait to come in during this instance as it had initially gotten better. Patient reports she has continued to have bowel movements and pass gas. Patient also endorses burning with urination over this same time period. The patient denies chest pain, shortness of breath, headache and dizziness. Denies fever, chills, diarrhea and constipation. Allergies: NKDA Past History - Past Medical History Allergies/Adverse Reactions: Allergies Allergy/AdvReac Type Severity Reaction Status Date / Time No Known Allergies Allergy Verified 07/09/18 09:10 Home Medications: Ambulatory Orders Amlodipine Besylate 10 mg PO DAILY 07/09/18 Carvedilol [Coreg -] 25 mg PO DAILY 07/09/18 Ciprofloxacin [Cipro -] 250 mg PO BID #10 tablet 07/09/18 Famotidine [Pepcid -] 20 mg PO DAILY 07/09/18 Omeprazole 40 mg PO DAILY 07/09/18 Ondansetron [Zofran Odt -] 4 mg SL TID PRN #10 od.tablet 07/09/18 Valsartan/Hydrochlorothiazide [Valsartan-Hctz 160-25 mg Tab] 1 each PO DAILY Anemia: No Asthma: No Cancer: No Cardiac Disorders: No CVA: No COPD: No CHF: No Dementia: No Diabetes: No GI Disorders: Yes (GASTRITIS) Disorders: No HTN: Yes Hypercholesterolemia: No Liver Disease: No Seizures: No Thyroid Disease: No - Surgical History Cholecystectomy: Yes - Suicide/Smoking/Psychosocial Hx Smoking History: Current some day smoker Have you smoked in the past 12 months: Yes Number of Cigarettes Smoked Daily: 20 'Breaking Loose' booklet given: 03/11/18 Hx Alcohol Use: No Drug/Substance Use Hx: No Substance Use Type: Alcohol Hx Substance Use Treatment: No Review of Systems - Review of Systems Comments:: 07/09/18 09:29 GENERAL/CONSTITUTIONAL: No fever or chills. No weakness. HEAD, EYES, EARS, NOSE AND THROAT: No change in vision. No ear pain or discharge. No sore throat. CARDIOVASCULAR: No chest pain or shortness of breath RESPIRATORY: No cough, wheezing, or hemoptysis. GASTROINTESTINAL: +N/V as described. No diarrhea or constipation. GENITOURINARY: +Dysuria over time period described. MUSCULOSKELETAL: No joint or muscle swelling or pain. No neck or back pain. SKIN: No rash NEUROLOGIC: No headache, vertigo, loss of consciousness, or change in strength/ sensation. ENDOCRINE: No increased thirst. No abnormal weight change HEMATOLOGIC/LYMPHATIC: No anemia, easy bleeding, or history of blood clots. ALLERGIC/IMMUNOLOGIC: No hives or skin allergy. *Physical Exam - Physical Exam Comments: 07/09/18 09:30 GENERAL: Awake, alert, and fully oriented, in no acute distress HEAD: No signs of trauma, normocephalic, atraumatic EYES: PERRLA, EOMI, sclera anicteric, conjunctiva clear ENT: Auricles normal inspection, hearing grossly normal, nares patent, oropharynx clear without exudates. Moist mucosa NECK: Normal ROM, supple, no lymphadenopathy, JVD, or masses LUNGS: No distress, speaks full sentences, clear to auscultation bilaterally HEART: Regular rate and rhythm, normal S1 and S2, no murmurs, rubs or gallops, peripheral pulses normal and equal bilaterally. ABDOMEN: +Minor LUQ TTP. Otherwise soft, normoactive bowel sounds. No guarding , no rebound. No masses EXTREMITIES: Normal inspection, Normal range of motion, no edema. No clubbing or cyanosis. NEUROLOGICAL: Cranial nerves II through XII grossly intact. Normal speech, normal gait, no focal sensorimotor deficits SKIN: Warm, Dry, normal turgor, no rashes or lesions noted. ED Treatment Course - LABORATORY CBC & Chemistry Diagram: 07/09/18 09:34 07/09/18 09:34 Medical Decision Making - Medical Decision Making 07/09/18 09:31 Ms. Ambrocio is a 47 yo female w/ pmh as described who presents for evaluation of several day history of symptoms c/w gastritis vs. colitis vs. viral illness. Patient reports this is similar to her prior presentations for gastritis. 07/09/18 10:15 Patient given symptomatic relief w/ NS, pepcid, zofran. KDUR given for electrolyte replacement. 07/09/18 10:47 Patient noted to have UTI as below. Ciprofloxacin started w/ Rx sent to pt's pharmacy. Additional Rx for zofran prn given. Patient currently resting comfortably. 07/09/18 11:06 Patient requesting pain medication; 30mg toradol and additional 1L NS given. Decision made to CT abdomen given additional pain. 07/09/18 14:10 CT abdomen negative. Patient has had no episodes of vomiting since entry to ER. Discharging for further outpatient GI follow-up. Laboratory Results - last 24 hr 07/09/18 07/09/18 07/09/18 09:30 09:30 09:34 WBC 17.7 H RBC 5.17 Hgb 15.9 H Hct 46.6 H D MCV 90.0 MCH 30.8 MCHC 34.2 RDW 14.7 Plt Count 422 MPV 8.0 Absolute Neuts (auto) 15.7 Neutrophils % 88.5 H Lymphocytes % 7.9 L Monocytes % 2.8 L Eosinophils % 0.2 Basophils % 0.6 Sodium Potassium Chloride Carbon Dioxide Anion Gap BUN Creatinine Creat Clearance w eGFR Random Glucose Calcium Total Bilirubin AST ALT Alkaline Phosphatase Total Protein Albumin Urine Color Yellow Urine Appearance Clear Urine pH 6.0 Ur Specific [place] 1.020 Urine Protein 1+ H Urine Glucose (UA) Negative Urine Ketones Trace Urine Blood 2+ H Urine Nitrite Negative Urine Bilirubin Negative Urine Urobilinogen 0.2 Ur Leukocyte Esterase Trace H Urine RBC 5-10 Urine WBC 10-20 Ur Epithelial Cells Few Urine Bacteria 2+ Urine HCG, Qual Negative 07/09/18 09:34 WBC RBC Hgb Hct MCV MCH MCHC RDW Plt Count MPV Absolute Neuts (auto) Neutrophils % Lymphocytes % Monocytes % Eosinophils % Basophils % Sodium 131 L Potassium 3.2 L D Chloride 93 L Carbon Dioxide 26 Anion Gap 12 BUN 23 H Creatinine 1.3 Creat Clearance w eGFR 43.54 Random Glucose 184 H D Calcium 9.9 Total Bilirubin 0.7 AST 27 D ALT 26 D Alkaline Phosphatase 132 H Total Protein 7.0 Albumin 4.4 Urine Color Urine Appearance Urine pH Ur Specific [place] Urine Protein Urine Glucose (UA) Urine Ketones Urine Blood Urine Nitrite Urine Bilirubin Urine Urobilinogen Ur Leukocyte Esterase Urine RBC Urine WBC Ur Epithelial Cells Urine Bacteria Urine HCG, Qual *DC/Admit/Observation/Transfer Diagnosis at time of Disposition: Abdominal pain Qualifiers: Abdominal location: unspecified location Qualified Code(s): R10.9 - Unspecified abdominal pain Nausea & vomiting Qualifiers: Vomiting type: unspecified Vomiting Intractability: non-intractable Qualified Code(s): R11.2 - Nausea with vomiting, unspecified - Discharge Dispostion Disposition: HOME Condition at time of disposition: Stable - Prescriptions Prescriptions: Ciprofloxacin [Cipro -] 250 mg PO BID #10 tablet Ondansetron [Zofran Odt -] 4 mg SL TID PRN #10 od.tablet PRN Reason: Nausea - Referrals Referrals: Arnoldo Doyle MD [Staff Physician] - - Patient Instructions Printed Discharge Instructions: Nausea and Vomiting-Adult, DI for Nausea -- Adult Additional Instructions: You were evaluated today in the emergency room for your nausea and vomiting. Please follow-up with gastroenterology as discussed. A prescription was sent to your pharmacy. Take all medications as proscribed. Return to ER if any increase of pain or fever, chills, uncontrolled, vomiting. - Post Discharge Activity Forms/Work/School Notes: Back to Work
--- NOTE | 2018-07-09 09:29 | PDOC ---
Attending Attestation - Resident Resident Name: Nicolas Jj - ED Attending Attestation I have performed the following: I have examined & evaluated the patient, The case was reviewed & discussed with the resident, I agree w/resident's findings & plan - HPI HPI: 07/09/18 09:22 47 y/o female with N/V for 4-5 days. patient states she gets this a lot and has had negative CT and work ups in the past. No fever, chills, or diarrhea. No blood in stool. No SOB or chest pain. Abdominal pain. No back pain, fall or trauma. No headache. Patient does state to have some burning with urination and her white count will be elevated. Has had EGD 4 months ago. 07/09/18 14:29 - Physicial Exam PE: 07/09/18 09:24 VS noted HEENT: Unremarkable Heart: RRR w/o murmur Lungs: CTA b/l, no wheezes, rhonchi, rales Abdomen: soft, mild tenderness to LUQ, no RUQ or RLQ tenderness, no LLQ tenderness, no pulsatile mass EXT : neg C/C/E Neuro: grossly intact, no focal deficits noted 07/09/18 13:58 After treatment with IVF 2 L, Pepcid 40 mg IV, Toradol 30 mg IV Low K+, pt given KCL po Morphine sulfate 4 mg IV Cipro 250 mg po Patient with normal CT abdomen/pelvis with IV contrast Pt has not vomited in ER since being here Will place on Tylenol. Zofran and will send home Follow up with GI If worsen return to ER Final Dx: Abdominal pain NOS Hypokalemia UTI Cipro 250 mg 2x/day for 5 days Long discussion with and patient to admit for observation for intractable pain. No active vomiting. Risks and benefits discussed with pt. Wish to go home and follow up with GI. Unable to get discharge blood pressure pt not being cooperative. - Medical Decision Making 07/09/18 14:40 Dx: UTI, abdominal pain, hypokalemia Agree with Dr. Jj plan Cipro 250 mg 2x/day for 5 days Zofran ODT 4mg 1 tab every 8 hr as needed Recheck bp tomorrow If worsen return to ER
[2018-07-09] MEDS ORDERED: ONDANSETRON 4 MG/2 ML VIAL ONE ×2 (09:39→13:03)
[2018-07-09 09:55] LABS: BASO % 0.6 % (0-2.0); EOS % 0.2 % (0-4.5); HEMATOCRIT 46.6 % (32.4-45.2); HEMOGLOBIN 15.9 GM/dl (10.7-15.3); LYMPH % 7.9 % (8-40); MCH 30.8 pg (25.7-33.7); MCHC 34.2 g/dl (32.0-36.0); MONO % 2.8 % (3.8-10.2); NEUT % 88.5 % (42.8-82.8); PLATELET COUNT 422 K/MM3 (134-434); RBC 5.17 M/mm3 (3.60-5.2); RDW 14.7 % (11.6-15.6); WHITE BLOOD COUNT 17.7 K/mm3 (4.0-10.8)
[2018-07-09 09:56] LABS: URINE APPEARANCE Clear; URINE BILIRUBIN Negative (NEGATIVE); URINE COLOR Yellow; URINE GLUCOSE (UA) Negative (NEGATIVE); URINE KETONE Trace (NEGATIVE); URINE LEUK ESTERASE TRACE (NEGATIVE); URINE NITRITE Negative (NEGATIVE); URINE PROTEIN 1+ (NEGATIVE); URINE UROBILINOGEN 0.2 (0.2-1.0)
[2018-07-09 10:04] LABS: ALBUMIN 4.4 g/dl (3.5-5.0); ALK PHOS 132 U/L (32-92); ANION GAP 12 MMOL/L (8-16); BILIRUBIN,TOTAL 0.7 mg/dl (0.2-1.0); BLOOD UREA NITROGEN 23 mg/dl (7-18); CALCIUM 9.9 mg/dl (8.4-10.2); CHLORIDE 93 mmol/L (98-107); CO2 26 mmol/L (22-28); CREATININE 1.3 mg/dl (0.6-1.3); GLUCOSE,RANDOM 184 mg/dl (74-106); POTASSIUM 3.2 mmol/L (3.5-5.1); SGOT/AST 27 U/L (10-42); SGPT/ALT 26 U/L (10-40); SODIUM 131 mmol/L (136-145)
[2018-07-09] MEDS ORDERED: POTASSIUM CHLORIDE TABS 20 MEQ TABLET.ER (FP) PO ONE ×2 (10:12→10:25)
[2018-07-09 10:23] LABS: EPI CELLS FEW /HPF
[2018-07-09 10:24] LABS: URINE BACTERIA 2+ /hpf (NEGATIVE)
[2018-07-09] MEDS ORDERED: CIPROFLOXACIN 250 MG TABLET (RESTRICTED TO ID) PO ONE ×2 (10:42→10:59)
[2018-07-09] MEDS ORDERED: ACETAMINOPHEN 325 MG TABLET (FP) PO ONE (11:05)
[2018-07-09 11:06] LABS: LIPASE 133 U/L (73-393)
[2018-07-09] MEDS ORDERED: ACETAMINOPHEN 325 MG TABLET (FP) ONE (11:06)
[2018-07-09] MEDS ORDERED: KETOROLAC TROMETHAMINE 30 MG/1 ML VIAL IVPUSH ONE (11:08)
[2018-07-09] MEDS ORDERED: KETOROLAC TROMETHAMINE 30 MG/1 ML VIAL ONE (11:09)
[2018-07-09] MEDS ORDERED: morphine CARPU-JECT 4 MG/1 ML DISP.SYRIN IVPUSH ONE (13:02)
[2018-07-09] MEDS ORDERED: morphine SULFATE 4 MG/ML VIAL ONE (13:03)
[2018-07-09 14:53] VITALS: BP 158/99; PULSE 87
== END 2018-07-09 14:55 | disposition home or self-care (01) ==
LOC: FER 09:09
PROC: 3E0337Z Introduction of Electrolytic and Water Balance Substance into Peripheral Vein, Percutaneous Approach (ICD-10-PCS; principal; 2018-07-09)
PROC: 3E033GC Introduction of Other Therapeutic Substance into Peripheral Vein, Percutaneous Approach (ICD-10-PCS; 2018-07-09)
PROC: 3E03329 Introduction of Other Anti-infective into Peripheral Vein, Percutaneous Approach (ICD-10-PCS; 2018-07-09)
PROC: 3E0333Z Introduction of Anti-inflammatory into Peripheral Vein, Percutaneous Approach (ICD-10-PCS; 2018-07-09)
DX: R10.9 Unspecified abdominal pain (principal); R11.2 Nausea with vomiting, unspecified; I10 Essential (primary) hypertension; F17.210 Nicotine dependence, cigarettes, uncomplicated
CPT/HCPCS: 36415; 74177-TC; 80053; 81003; 81015; 83690; 84703; 85025; 87086; 87186; 99285-25; J7030

== ENCOUNTER 2018-08-20 13:53 | Inpatient (IN) | payer OTHER ==
--- NOTE | 2018-08-20 13:56 | PDOC ---
History of Present Illness - General Chief Complaint: Nausea/Vomiting Stated Complaint: VOMITING - History of Present Illness Initial Comments: The patient is a 47F w/ a history of PMH gastritis, HTN, and s/p moreno who presents for evaluation of 3d of epigastric abdominal pain as well as nausea/ NBNB vomiting. The patient reports that she has had similar episodes multiple times in the past. She reports that she has been seen by multiple GI specialists in the past and has been told that she has gastritis and GERD. She states that she took 2 zofran yesterday with little relief. She also reports taking one of her own zofran just prior to evaluation while in the waiting room Denies fevers/chills, recent illness, others with similar symptoms, THOMASON, vision changes, SOB, chest pain, or changes in sensation 08/20/18 13:59 Past History - Past Medical History Allergies/Adverse Reactions: Allergies Allergy/AdvReac Type Severity Reaction Status Date / Time No Known Allergies Allergy Verified 08/20/18 13:54 Home Medications: Ambulatory Orders Amlodipine Besylate 10 mg PO DAILY 07/09/18 Carvedilol [Coreg -] 25 mg PO DAILY 07/09/18 Famotidine [Pepcid -] 20 mg PO DAILY 07/09/18 Omeprazole 40 mg PO DAILY 07/09/18 Ondansetron [Zofran Odt -] 4 mg SL TID PRN #10 od.tablet 07/09/18 Valsartan/Hydrochlorothiazide [Valsartan-Hctz 160-25 mg Tab] 1 each PO DAILY Anemia: No Asthma: No Cancer: No Cardiac Disorders: No CVA: No COPD: No CHF: No Dementia: No Diabetes: No GI Disorders: Yes (GASTRITIS) Disorders: No HTN: Yes Hypercholesterolemia: No Liver Disease: No Seizures: No Thyroid Disease: No - Surgical History Cholecystectomy: Yes - Suicide/Smoking/Psychosocial Hx Smoking History: Current some day smoker Have you smoked in the past 12 months: Yes Number of Cigarettes Smoked Daily: 20 'Breaking Loose' booklet given: 07/09/18 Hx Alcohol Use: No Drug/Substance Use Hx: No Substance Use Type: Alcohol Hx Substance Use Treatment: No Review of Systems - Review of Systems Able to Perform ROS?: Yes Comments:: GENERAL/CONSTITUTIONAL: No fever or chills. No weakness HEAD, EYES, EARS, NOSE AND THROAT: No change in vision. No ear pain or discharge. No sore throat CARDIOVASCULAR: No chest pain or shortness of breath RESPIRATORY: Denies cough, hemoptysis GASTROINTESTINAL: per HPI GENITOURINARY: No dysuria, frequency, or change in urination MUSCULOSKELETAL: No joint or muscle swelling or pain. No neck pain SKIN: No rash NEUROLOGIC: No headache, vertigo, loss of consciousness, or change in strength/ sensation ENDOCRINE: No increased thirst. No abnormal weight change HEMATOLOGIC/LYMPHATIC: No anemia, easy bleeding, or history of blood clots ALLERGIC/IMMUNOLOGIC: No hives or skin allergy 08/20/18 13:58 Is the patient limited R[place] proficient: No *Physical Exam - Physical Exam Comments: GENERAL: Awake, alert, and fully oriented, in no acute distress HEAD: No signs of trauma, normocephalic, atraumatic EYES: PERRLA, EOMI, sclera anicteric, conjunctiva clear LUNGS: No distress, speaks full sentences, clear to auscultation bilaterally HEART: Regular rate and rhythm, normal S1 and S2, no murmurs appreciated, peripheral pulses normal and equal bilaterally ABDOMEN: Soft, epigastric TTP w/o rebound or guarding, normoactive bowel sounds EXTREMITIES : Normal inspection, Normal range of motion, no edema. No clubbing or cyanosis NEUROLOGICAL: Cranial nerves II through XII grossly intact. Normal speech, no focal sensorimotor deficits SKIN: Warm, Dry, normal turgor, no rashes or lesions noted 08/20/18 13:58 ED Treatment Course - LABORATORY CBC & Chemistry Diagram: 08/20/18 14:35 08/20/18 13:54 Medical Decision Making - Medical Decision Making The patient is a 47F w/ a history of HTN, gastritis, and s/p moreno who presents for evaluation of 3d of N, NBNB V, and epigastric abdominal pain 08/20/18 14:23 1L NS UA w/o evidence of UTI Leukocytosis to 16.8 Hgb 15.8, plt 410, possible dehydration 08/20/18 15:10 Nausea resolved Patient continues to endorse epigastric pain -Will give Protonix 40mg IVPB once and Carafate 10mg PO once 08/20/18 15:27 Patient continues to have resolved nausea, persistent epigastric pain which is still described as the same as the pain she has been previously evaluated for and presented with earlier. 08/20/18 16:25 Lipase wnl Plan for admission for transaminitis 08/20/18 17:30 Patient did not take her HTN medications this AM, took her own meds this PM 08/20/18 17:56 Ofirmev 1g IV once for pain, only mild transaminitis RUQ US ordered for eval of hepatobiliary pathology Dispo: obs admit 08/20/18 18:16 *DC/Admit/Observation/Transfer Diagnosis at time of Disposition: Transaminitis Gastritis Qualifiers: Gastritis type: unspecified gastritis Chronicity: chronic Gastritis bleeding: presence of bleeding unspecified Qualified Code(s): K29.50 - Unspecified chronic gastritis without bleeding Nausea & vomiting Qualifiers: Vomiting type: unspecified Vomiting Intractability: unspecified Qualified Code( s): R11.2 - Nausea with vomiting, unspecified - Discharge Dispostion Condition at time of disposition: Good Decision to Admit order: Yes - Referrals - Patient Instructions Printed Discharge Instructions: DI for Vomiting -- Adult Additional Instructions: You were seen in the Emergency Department today for evaluation of nausea and vomiting. Please review the handout provided at discharge. 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 Continue to take your medications as directed. Return to the Emergency Department if you develop fevers/chills, inability to tolerate food, worsening symptoms, or any new/concerning symptoms. - Post Discharge Activity
[2018-08-20] MEDS ORDERED: ONDANSETRON 4 MG/2 ML VIAL IVPUSH ONE (14:00)
[2018-08-20] MEDS ORDERED: SODIUM CHLORIDE 0.9% 500 ML INFUS.BAG IV ONE ×2 (14:00→15:24)
[2018-08-20 14:47] LABS: URINE APPEARANCE Clear; URINE BILIRUBIN Negative (NEGATIVE); URINE COLOR Yellow; URINE GLUCOSE (UA) Negative (NEGATIVE); URINE KETONE Negative (NEGATIVE); URINE LEUK ESTERASE Negative (NEGATIVE); URINE NITRITE Negative (NEGATIVE); URINE PROTEIN Negative (NEGATIVE); URINE UROBILINOGEN 0.2 (0.2-1.0)
[2018-08-20 14:52] LABS: BASO % 1.5 % (0-2.0); HEMATOCRIT 48.3 % (32.4-45.2); HEMOGLOBIN 15.8 GM/dl (10.7-15.3); MCH 29.8 pg (25.7-33.7); MCHC 32.7 g/dl (32.0-36.0); MEAN CELL VOLUME 91.2 fl (80-96); MEAN PLT VOLUME 7.8 fl (7.5-11.1); MONO % 3.4 % (3.8-10.2); NEUT % 87.1 % (42.8-82.8); PLATELET COUNT 410 K/MM3 (134-434); RBC 5.29 M/mm3 (3.60-5.2); RDW 14.4 % (11.6-15.6); WHITE BLOOD COUNT 16.8 K/mm3 (4.0-10.8)
[2018-08-20 14:58] LABS: AMORP URATES NONE SEEN /hpf (NONE SEEN); EPI CELLS FEW /HPF; URINE BACTERIA NONE SEEN /hpf (NEGATIVE); URINE WBC NONE SEEN (0-5)
[2018-08-20] MEDS ORDERED: PANTOPRAZOLE SODIUM 40 MG VIAL IVPB ONE (15:24)
[2018-08-20] MEDS ORDERED: PANTOPRAZOLE SODIUM 40 MG VIAL ONE (15:25)
[2018-08-20] MEDS ORDERED: SUCRALFATE 1 GM/10 ML UNIT DOSE CUPS PO ONE (15:27)
[2018-08-20] MEDS ORDERED: SUCRALFATE 1 GM/10 ML UNIT DOSE CUPS ONE (15:27)
--- NOTE | 2018-08-20 15:30 | PDOC ---
Attending Attestation - Resident Resident Name: KathyThai - ED Attending Attestation I have performed the following: I have examined & evaluated the patient, The case was reviewed & discussed with the resident, I agree w/resident's findings & plan, Exceptions are as noted - HPI HPI: 08/20/18 18:07 Patient with multiple admissions in the past for upper abdominal pain and vomiting. No definitive diagnosis, despite multiple CT scans and upper endoscopy. She has had elevated white blood counts in the past seemingly associated with urinary tract infections with Klebsiella. LFTs have always been normal - Physicial Exam PE: 08/20/18 18:09 Physical exam reveals normal vital signs. The patient appears cachectic, her skin is dusky brown color, and she complains of epigastric pain, although the abdominal exam is nonspecific. There is no guarding or rebound, or other sign of significant peritoneal irritation. The liver is not palpable. There is no Rose sign. - Medical Decision Making 08/20/18 18:12 Assessment: Long history of recurrent upper abdominal pain, multiple admissions without adequate explanation. LFTs and alkaline phosphatase are not elevated. The first time. Suspect some gallbladder or liver disease, sclerosing cholangitis, or occult malignancy. Plan: Admit for further diagnostic evaluation, this time focusing on the liver and biliary tree. Analgesia and anti-emetics. 08/20/18 18:14 Dr. Martel contacted by phone. The case was discussed. She requested an ultrasound of the liver and gallbladder, which was ordered and is pending. She will admit the patient to the hospitalist service for further evaluation.
[2018-08-20 15:41] LABS: ALBUMIN 4.9 g/dl (3.5-5.0); ALK PHOS 246 U/L (32-92); ANION GAP 15 MMOL/L (8-16); BILIRUBIN,TOTAL 0.8 mg/dl (0.2-1.0); BLOOD UREA NITROGEN 16 mg/dl (7-18); CALCIUM 9.9 mg/dl (8.4-10.2); CHLORIDE 97 mmol/L (98-107); CO2 26 mmol/L (22-28); CREATININE 0.8 mg/dl (0.6-1.3); GLUCOSE,RANDOM 137 mg/dl (74-106); POTASSIUM 3.7 mmol/L (3.5-5.1); SGOT/AST 63 U/L (10-42); SGPT/ALT 110 U/L (10-40); SODIUM 138 mmol/L (136-145)
[2018-08-20] MEDS ORDERED: ACETAMINOPHEN 1000 MG/100 ML VIAL (NON FORMULARY) IVPB ONE (17:55)
[2018-08-20] MEDS ORDERED: ACETAMINOPHEN INJECTION 100 ML IVPB ONE (18:11)
[2018-08-20] MEDS ORDERED: METOPROLOL TARTRATE 5 MG/5 ML VIAL ONE (19:43)
--- NOTE | 2018-08-20 21:02 | HP ---
CHIEF COMPLAINT: Abdominal Pain, Nausea and Vomiting PCP: Dr. Jimenez (in [facility]) GI: Dr. Clark (in [facility]) HISTORY OF PRESENT ILLNESS: This is a 47 y/o woman with a past medical history of Gastritis, GERD, HTN, Anemia (Iron Infusions). Who presents to the ED with epigastric pain and non- bloody emesis. Patient states she had a headache last Tuesday that triggered her vomiting and epigastric pain.The patient reports taking her Zofran and antacids without relief. Patient reports seeing her GI over the summer, had an EGD in March/April- was told that she has GERD. She reports having an appointment with her GI next month for a follow up. The patient reports never having a Colonoscopy due to her age. Patient has a familial hx Colorectal Ca, Stomach Ca. Patient denies fever, chills, cough, SOB, dizziness, CP, palpitations, diarrhea, hematochezia, melena, hematuria, dysuria. LMP- at present time ER course was notable for: (1) WBC 16.8 (2) Transaminitis- AST 63, ALT 110, alk phos 246 (3) BP- 200/101~ 189/77~ 146/93 Recent Travel: None PAST MEDICAL HISTORY: See HPI PAST SURGICAL HISTORY: Cholecystectomy (10 yrs ago) Tubal Ligation Tonsillectomy Social History: Smoking: Daily 1/2-1 PPD Alcohol: Seldom- mixed drinks Drugs: None Employed- Tester Operator Family History: Mother: DM Father: DM Brother: DM Sister: DM Uncle: Colon Ca Cousin: Stomach Ca Cousin Ovarian Ca Allergies No Known Allergies Allergy (Verified 08/20/18 13:54) HOME MEDICATIONS: Home Medications Medication Instructions Recorded Amlodipine Besylate 10 mg PO DAILY 07/09/18 Carvedilol [Coreg -] 25 mg PO DAILY 07/09/18 Famotidine [Pepcid -] 20 mg PO DAILY 07/09/18 Omeprazole 40 mg PO DAILY 07/09/18 Ondansetron [Zofran Odt -] 4 mg SL TID PRN #10 od.tablet 07/09/18 Valsartan/Hydrochlorothiazide 1 each PO DAILY 07/09/18 [Valsartan-Hctz 160-25 mg Tab] REVIEW OF SYSTEMS CONSTITUTIONAL: Absent: fever, chills, diaphoresis, generalized weakness, malaise, loss of appetite, weight change HEENT: Absent: rhinorrhea, nasal congestion, throat pain, throat swelling, difficulty swallowing, mouth swelling, ear pain, eye pain, visual changes CARDIOVASCULAR: Absent: chest pain, syncope, palpitations, irregular heart rate, lightheadedness , peripheral edema RESPIRATORY: Absent: cough, shortness of breath, dyspnea with exertion, orthopnea, wheezing, stridor, hemoptysis GASTROINTESTINAL: abdominal pain, nausea, vomiting Absent: abdominal distension, diarrhea, constipation, melena, hematochezia GENITOURINARY: Absent: dysuria, frequency, urgency, hesitancy, hematuria, flank pain, genital pain MUSCULOSKELETAL: Absent: myalgia, arthralgia, joint swelling, back pain, neck pain SKIN: Absent: rash, itching, pallor HEMATOLOGIC/IMMUNOLOGIC: Absent: easy bleeding, easy bruising, lymphadenopathy, frequent infections ENDOCRINE: Absent: unexplained weight gain, unexplained weight loss, heat intolerance, cold intolerance NEUROLOGIC: Absent: headache, focal weakness or paresthesias, dizziness, unsteady gait, seizure, mental status changes, bladder or bowel incontinence PSYCHIATRIC: Absent: anxiety, depression, suicidal or homicidal ideation, hallucinations. PHYSICAL EXAMINATION Vital Signs - 24 hr 08/20/18 08/20/18 08/20/18 13:53 15:25 19:01 Temperature 97.9 F 97.8 F Pulse Rate 114 H Pulse Rate [ 95 H 94 H Left Apical] Respiratory 20 18 16 Rate Blood Pressure 200/101 H Blood Pressure 189/77 H 146/93 [Right Arm] O2 Sat by Pulse 99 99 98 Oximetry (%) GENERAL: Thin, awake, alert, and fully oriented, in mild distress. HEAD: Normal with no signs of trauma. EYES: Pupils equal, round and reactive to light, extraocular movements intact, sclera anicteric, conjunctiva clear. No lid lag. EARS, NOSE, THROAT: Ears normal, nares patent, oropharynx clear without exudates. Moist mucous membranes. NECK: Normal range of motion, supple without lymphadenopathy, JVD, or masses. LUNGS: Breath sounds equal, clear to auscultation bilaterally. No wheezes, and no crackles. No accessory muscle use. HEART: Regular rate and rhythm, normal S1 and S2 without murmur, rub or gallop. ABDOMEN: Tenderness to epigastrium, lower pelvic region, hyperactive bowel sounds, soft, not distended, no guarding, no rebound, no masses. No hepatomegaly or splenomegaly. MUSCULOSKELETAL: Normal range of motion at all joints. No bony deformities or tenderness. No CVA tenderness. UPPER EXTREMITIES: 2+ pulses, warm, well-perfused. No cyanosis. No clubbing. No peripheral edema. LOWER EXTREMITIES: 2+ pulses, warm, well-perfused. No calf tenderness. No peripheral edema. NEUROLOGICAL: Cranial nerves II-XII intact. Normal speech. Normal gait. PSYCHIATRIC: Cooperative. Good eye contact. Appropriate mood and affect. SKIN: Warm, dry, normal turgor, no rashes or lesions noted, normal capillary refill. Laboratory Results - last 24 hr 08/20/18 08/20/18 08/20/18 13:54 13:54 14:35 WBC 16.8 H RBC 5.29 H Hgb 15.8 H Hct 48.3 H MCV 91.2 MCH 29.8 MCHC 32.7 RDW 14.4 Plt Count 410 MPV 7.8 Absolute Neuts (auto) 14.6 Neutrophils % 87.1 H Lymphocytes % 8.0 Monocytes % 3.4 L Eosinophils % 0.0 Basophils % 1.5 Sodium 138 Potassium 3.7 Chloride 97 L Carbon Dioxide 26 Anion Gap 15 BUN 16 Creatinine 0.8 Creat Clearance w eGFR > 60 Random Glucose 137 H D Calcium 9.9 Total Bilirubin 0.8 AST 63 H D ALT 110 H D Alkaline Phosphatase 246 H Total Protein 8.0 Albumin 4.9 Lipase Urine Color Yellow Urine Appearance Clear Urine pH 7.0 Ur Specific [place] 1.010 Urine Protein Negative Urine Glucose (UA) Negative Urine Ketones Negative Urine Blood Trace-intact H Urine Nitrite Negative Urine Bilirubin Negative Urine Urobilinogen 0.2 Ur Leukocyte Esterase Negative Urine RBC 2-5 Urine WBC None seen Ur Epithelial Cells Few Amorphous Urates None seen Urine Bacteria None seen 08/20/18 14:35 WBC RBC Hgb Hct MCV MCH MCHC RDW Plt Count MPV Absolute Neuts (auto) Neutrophils % Lymphocytes % Monocytes % Eosinophils % Basophils % Sodium Potassium Chloride Carbon Dioxide Anion Gap BUN Creatinine Creat Clearance w eGFR Random Glucose Calcium Total Bilirubin AST ALT Alkaline Phosphatase Total Protein Albumin Lipase 110 Urine Color Urine Appearance Urine pH Ur Specific [place] Urine Protein Urine Glucose (UA) Urine Ketones Urine Blood Urine Nitrite Urine Bilirubin Urine Urobilinogen Ur Leukocyte Esterase Urine RBC Urine WBC Ur Epithelial Cells Amorphous Urates Urine Bacteria ASSESSMENT/PLAN: This is a 47 y/o woman with a PMHx of HTN, Gastritis, GERD. Placed in Observation for Acute Gastritis, Intractable Abdominal Pain, Transaminitis for further evaluation of their emergent condition. Plan: FEN PO fluids as tolerated Replete lytes prn NPO DVT ppx OOB SCDs Dispo: Observation Problem List - Problem (1) Abdominal pain Assessment/Plan: Likely secondary to Gastritis vs Cholangitis vs Pancreatitis vs AP Abdominal US- 1.5 x 0.9 x 2.1 hyperchoic lesion in left lobe liver likely cavernous hemangioma, CBD normal, pancreas unremarkable, no hydronephrosis WBC 16.8, possibly inflammatory vs infectious NS bolus given in ED Appreicate GI consult Will need Hida Scan or MRCP Monitor CBC, BMP Monitor vitals Code(s): R10.9 - UNSPECIFIED ABDOMINAL PAIN (2) Gastritis Assessment/Plan: See above Code(s): K29.70 - GASTRITIS, UNSPECIFIED, WITHOUT BLEEDING Qualifiers: Gastritis type: unspecified gastritis Chronicity: chronic Gastritis bleeding: presence of bleeding unspecified Qualified Code(s): K29.50 - Unspecified chronic gastritis without bleeding (3) Transaminitis Assessment/Plan: Likely secondary to medication vs Hepatic Failure US reviewed Add on Acute Hepatitis panel Hold Valsartan Decrease Omeprazole Monitor CMP Code(s): R74.0 - NONSPEC ELEV OF LEVELS OF TRANSAMNS & LACTIC ACID DEHYDRGNSE (4) HTN (hypertension) Assessment/Plan: uncontrolled Likely secondary to missed meds due to vomiting Will resume HCTZ, Coreg, monitor closely Monitor LFTs Code(s): I10 - ESSENTIAL (PRIMARY) HYPERTENSION Visit type - Emergency Visit Emergency Visit: Yes ED Registration Date: 08/20/18 Care time: The patient presented to the Emergency Department on the above date and was hospitalized for further evaluation of their emergent condition. - New Patient This patient is new to me today: Yes Date on this admission: 08/20/18 - Critical Care Critical Care patient: No
[2018-08-20] MEDS ORDERED: DEXTROSE 5%-0.45% SALINE 1,000 ML IV SCH (21:15)
[2018-08-20] MEDS ORDERED: MORPHINE SULFATE 2 MG/ML VIAL IVPUSH PRN (22:21)
[2018-08-20] MEDS: morphine CARPU-JECT 2 MG/1 ML DISP.SYRIN IVPUSH PRN (22:58)
[2018-08-20] MEDS ORDERED: PIPERACILLIN/TAZOB 3.375 GM 3.375 GM in DEXTROSE 5%-WATER - 50 ML IVPB ONE (23:30)
[2018-08-21 00:23] VITALS: BMI 18.3
[2018-08-21] MEDS ORDERED: DEXTROSE 5%-WATER - 50 ML IVPB ONE (00:36)
[2018-08-21] MEDS ORDERED: PIPERACILLIN/TAZOBACTAM 3.375 GM VIAL IVPB ONE (00:37)
[2018-08-21] MEDS: morphine CARPU-JECT 2 MG/1 ML DISP.SYRIN IVPUSH PRN (05:00)
[2018-08-21 08:12] LABS: BASO % 0.3 % (0-2.0); EOS % 0.1 % (0-4.5); HEMATOCRIT 44.4 % (32.4-45.2); HEMOGLOBIN 14.7 GM/dl (10.7-15.3); LYMPH % 9.8 % (8-40); MCH 29.9 pg (25.7-33.7); MCHC 33.1 g/dl (32.0-36.0); MEAN CELL VOLUME 90.4 fl (80-96); MEAN PLT VOLUME 8.1 fl (7.5-11.1); MONO % 7.6 % (3.8-10.2); NEUT % 82.2 % (42.8-82.8); PLATELET COUNT 374 K/MM3 (134-434); RBC 4.91 M/mm3 (3.60-5.2); WHITE BLOOD COUNT 19.1 K/mm3 (4.0-10.8)
[2018-08-21 08:16] LABS: ALBUMIN 4.3 g/dl (3.5-5.0); ALK PHOS 182 U/L (32-92); ANION GAP 12 MMOL/L (8-16); BILIRUBIN,TOTAL 0.7 mg/dl (0.2-1.0); BLOOD UREA NITROGEN 10 mg/dl (7-18); CALCIUM 9.4 mg/dl (8.4-10.2); CHLORIDE 97 mmol/L (98-107); CO2 25 mmol/L (22-28); CREATININE 0.6 mg/dl (0.6-1.3); GLUCOSE,RANDOM 127 mg/dl (74-106); SGOT/AST 31 U/L (10-42); SGPT/ALT 67 U/L (10-40); SODIUM 134 mmol/L (136-145); TOT PROT 6.9 g/dl (6.4-8.3)
--- NOTE | 2018-08-21 08:18 | PN ---
Physical Exam: SUBJECTIVE: Patient seen and examined sitting on edge of bed. Tearful, anxious, was given notice on Tuesday that she may be terminated from job due to excessive absenteeism. Abdominal pain has subsided, no nausea or vomiting past 24 hours. OBJECTIVE: Vital Signs Period Temp Pulse Resp BP Sys/Young Pulse Ox Last 24 Hr 97.7 F-98.1 F 72-114 16-20 143-200/65-101 96-100 GENERAL: The patient is awake, alert, and fully oriented. HEAD: Normal with no signs of trauma. LUNGS: Breath sounds equal, clear to auscultation bilaterally, no wheezes, no crackles, no accessory muscle use. HEART: Regular rate and rhythm, S1, S2 ABDOMEN: Soft, nontender, nondistended, normoactive bowel sounds, no guarding, no rebound, no CVA tenderness EXTREMITIES: 2+ pulses, warm, well-perfused, no edema. NEUROLOGICAL: Cranial nerves II through XII grossly intact. Normal speech, steady gait PSYCH: anxious, tearful Laboratory Results - last 24 hr 08/20/18 08/20/18 08/20/18 13:54 13:54 14:35 WBC 16.8 H RBC 5.29 H Hgb 15.8 H Hct 48.3 H MCV 91.2 MCH 29.8 MCHC 32.7 RDW 14.4 Plt Count 410 MPV 7.8 Absolute Neuts (auto) 14.6 Neutrophils % 87.1 H Lymphocytes % 8.0 Monocytes % 3.4 L Eosinophils % 0.0 Basophils % 1.5 Sodium 138 Potassium 3.7 Chloride 97 L Carbon Dioxide 26 Anion Gap 15 BUN 16 Creatinine 0.8 Creat Clearance w eGFR > 60 Random Glucose 137 H D Lactic Acid Calcium 9.9 Total Bilirubin 0.8 AST 63 H D ALT 110 H D Alkaline Phosphatase 246 H Total Protein 8.0 Albumin 4.9 Lipase Urine Color Yellow Urine Appearance Clear Urine pH 7.0 Ur Specific [place] 1.010 Urine Protein Negative Urine Glucose (UA) Negative Urine Ketones Negative Urine Blood Trace-intact H Urine Nitrite Negative Urine Bilirubin Negative Urine Urobilinogen 0.2 Ur Leukocyte Esterase Negative Urine RBC 2-5 Urine WBC None seen Ur Epithelial Cells Few Amorphous Urates None seen Urine Bacteria None seen 08/20/18 08/20/18 14:35 22:30 WBC RBC Hgb Hct MCV MCH MCHC RDW Plt Count MPV Absolute Neuts (auto) Neutrophils % Lymphocytes % Monocytes % Eosinophils % Basophils % Sodium Potassium Chloride Carbon Dioxide Anion Gap BUN Creatinine Creat Clearance w eGFR Random Glucose Lactic Acid 0.8 Calcium Total Bilirubin AST ALT Alkaline Phosphatase Total Protein Albumin Lipase 110 Urine Color Urine Appearance Urine pH Ur Specific [place] Urine Protein Urine Glucose (UA) Urine Ketones Urine Blood Urine Nitrite Urine Bilirubin Urine Urobilinogen Ur Leukocyte Esterase Urine RBC Urine WBC Ur Epithelial Cells Amorphous Urates Urine Bacteria Current Medications Generic Name Dose Route Start Last Admin Trade Name Freq PRN Reason Stop Dose Admin Amlodipine Besylate 10 mg 08/21/18 10:00 08/21/18 09:38 Norvasc - PO 10 mg DAILY ANGELINE Administration Hydrochlorothiazide 25 mg 08/21/18 10:00 Hctz - PO DAILY ANGELINE Ceftriaxone Sodium 50 mls @ 100 mls/hr 08/21/18 12:30 Ceftriaxone 1 Gm-D5w Bag IVPB DAILY ANGELINE Protocol Sodium Chloride 1,000 mls @ 75 mls/hr 08/21/18 14:00 Normal Saline - IV ASDIR ANGELINE Pantoprazole Sodium 40 mg 08/21/18 10:00 08/21/18 09:38 Protonix - PO 40 mg DAILY ANGELINE Administration Potassium Chloride 40 meq 08/21/18 09:00 08/21/18 09:05 K-Dur - PO 08/21/18 15:01 40 meq Q6H ANGELINE Administration Prochlorperazine Maleate 25 mg 08/21/18 08:28 Compazine Suppository - [facility] DAILY PRN NAUSEA AND/OR VOMITING Tramadol HCl 50 mg 08/21/18 08:27 Ultram - PO Q8H PRN PAIN LEVEL 6-10 Valsartan 160 mg 08/21/18 10:00 08/21/18 09:37 Diovan - PO 160 mg DAILY ANGELINE Administration ASSESSMENT/PLAN: 47 year-old female with a PMH significant for HTN, gastritis, iron-deficiency anemia, and s/p cholecystectomy (2007). Presents with epigastric pain and vomiting. Acute exacerbation of recurrent gastritis --previously seen for same problem 04/2017, 08/2017, 12/2017, 02/2018, 2017 --patient states episodes are triggered by stress and by skipping meals; under a great deal of stress since Tuesday, her employer is threatening to terminate her, she has not been eating since then --follows regularly with PCP and with GI docs in [facility]; in past month had MRI of pancreas reportedly normal; last EGD on 04/18/[address] Sweet, negative biopsy , findings of mild acid reflux; patient states her gastritis has been worked up on multiple occasions --IV fluids, protonix, ultram PRN, compazine PRN Recurrent UTIs Acute pyelo v. acute renal infarct --has had Klebsiella UTIs on four previous hospitalizations: 04/2017, 12/2017 , 02/2018, 06/2018 --Dr. Chavez, radiologist, has today amended prior 07/09/18 CT scan: Additional review of the exam demonstrates lack of normal enhancement of the upper and middle thirds of the right kidney which may have been on the basis of acute infarction or acute pyelonephritis. Clinical/laboratory correlation is essential --CTAP pending Mildly dilated common bile duct s/p cholecystectomy --09/03/17 CT showed 0.8cm CBD --03/11/18 US abdomen: 0.5cm CBD --08/20/18 US abdomen: 0.8cm CBD; mildly elevated transaminases on this admission, trending down today --CTAP pending Leukocytosis --seen on every previous admission --afebrile --UA is negative --CXR pending --cultures pending --observe off antibiotics Hypertension --continue home meds: amlodipine, carvedilol, valsartan/HCTZ --check TSH, A1C (both parents of DM complications, 3/6 siblings have DM ) Prolonged QT --avoid QT prolonging agents, e.g. Zofran Hypokalemia --repleted FEN Fluids: NS @ 75mL/hr Electrolytes: replete as indicated Nutrition: NPO Dispo: PCP Dr. Dudley Butler, [facility]; GI Dr. Andrew Post, [facility]; continues to require inpatient care. Full code. Visit type - Emergency Visit Emergency Visit: Yes ED Registration Date: 08/20/18 Care time: The patient presented to the Emergency Department on the above date and was hospitalized for further evaluation of their emergent condition. - New Patient This patient is new to me today: Yes Date on this admission: 08/21/18 - Critical Care Critical Care patient: No
[2018-08-21] MEDS ORDERED: PROCHLORPERAZINE MALEATE 25 MG SUPP.RECT PR PRN (08:28)
[2018-08-21] MEDS ORDERED: MAGNESIUM SULF 50% (8.12 MEQ/2 ML-1 GM VIAL) IVPB ONE (08:46)
[2018-08-21 08:57] LABS: INR 1.16 (0.82-1.09); PROTHROMBIN TIME (PATIENT) 12.9 SEC (10.2-13.0)
[2018-08-21] MEDS: KCL 10 MEQ IVPB 10 MEQ/100 ML INFUS.BAG IVPB SCH ×2 (09:00→10:00)
[2018-08-21] MEDS: POTASSIUM CHLORIDE TABS 20 MEQ TABLET.ER (FP) PO SCH ×2 (09:05→15:00)
[2018-08-21] MEDS: VALSARTAN 160 MG TABLET (UD) PO SCH (09:37)
[2018-08-21] MEDS: PANTOPRAZOLE 40 MG TABLET (FP) PO SCH (09:38)
[2018-08-21] MEDS: amLODIPine BESYLATE 10 MG TABLET (FP) PO SCH (09:38)
[2018-08-21] MEDS ORDERED: CARVEDILOL 12.5 MG TABLET (FP) PO SCH (10:00)
[2018-08-21] MEDS: HYDROCHLOROTHIAZIDE 25 MG TABLET (FP) PO SCH (10:05)
[2018-08-21] MEDS: CEFTRIAXONE 1 G/50 ML PREMIX 50 ML IVPB SCH (12:45)
[2018-08-21] MEDS ORDERED: SODIUM CHLORIDE 1,000 ML IV SCH (14:00)
--- NOTE | 2018-08-21 15:24 | EKG ---
Test Reason : Blood Pressure : / mmHG Vent. Rate : 099 BPM Atrial Rate : 099 BPM P-R Int : 162 ms QRS Dur : 078 ms QT Int : 402 ms P-R-T Axes : 083 077 069 degrees QTc Int : 515 ms NORMAL SINUS RHYTHM BIATRIAL ENLARGEMENT PROLONGED QT INCOMPLETE RIGHT BUNDLE BRANCH BLOCK WHEN COMPARED WITH ECG OF 11-MAR-2018 12:48, NO SIGNIFICANT CHANGE WAS FOUND Confirmed by JOE RIVERA, PATRICA ([id number]) on 08/21/2018 3:23:57 PM Referred By: KETAN BUSTILLOS Confirmed By:PATRICA DIAZ MD
[2018-08-21] MEDS: traMADol HCL 50 MG TABLET PO PRN ×2 (18:41→19:08)
[2018-08-21] MEDS: CARVEDILOL 25 MG TABLET (FP) PO SCH (21:11)
[2018-08-22 05:31] LABS: HEP.C VIRUS AB <0.1 s/co ratio (0.0-0.9)
[2018-08-22] MEDS: traMADol HCL 50 MG TABLET PO PRN (05:49)
[2018-08-22] MEDS: CEFTRIAXONE 1 G/50 ML PREMIX 50 ML IVPB SCH (09:35)
[2018-08-22] MEDS: amLODIPine BESYLATE 10 MG TABLET (FP) PO SCH (09:35)
[2018-08-22] MEDS: HYDROCHLOROTHIAZIDE 25 MG TABLET (FP) PO SCH (09:35)
[2018-08-22] MEDS: CARVEDILOL 25 MG TABLET (FP) PO SCH (09:35)
[2018-08-22] MEDS: PANTOPRAZOLE 40 MG TABLET (FP) PO SCH (09:36)
[2018-08-22] MEDS: VALSARTAN 160 MG TABLET (UD) PO SCH (09:36)
--- NOTE | 2018-08-22 10:26 | PN ---
Physical Exam: SUBJECTIVE: Patient seen and examined OBJECTIVE: Vital Signs Period Temp Pulse Resp BP Sys/Young Pulse Ox Last 24 Hr 96.4 F-98.3 F 65-84 16-19 121-144/59-91 93-100 GENERAL: The patient is awake, alert, and fully oriented. HEAD: Normal with no signs of trauma. LUNGS: Breath sounds equal, clear to auscultation bilaterally, no wheezes, no crackles, no accessory muscle use. HEART: Regular rate and rhythm, S1, S2 ABDOMEN: Soft, nontender, nondistended, normoactive bowel sounds, no guarding, no rebound, no CVA tenderness EXTREMITIES: 2+ pulses, warm, well-perfused, no edema. NEUROLOGICAL: Cranial nerves II through XII grossly intact. Normal speech, steady gait PSYCH: anxious, tearful Laboratory Results - last 24 hr 08/20/18 08/21/18 08/21/18 22:30 09:53 14:16 Hemoglobin A1c % 5.7 Magnesium 1.9 TSH Hepatitis A IgM Ab Negative Hep Bs Antigen Negative Hep B Core IgM Ab Negative Hepatitis C Antibody <0.1 08/21/18 14:16 Hemoglobin A1c % Magnesium TSH 0.29 L Hepatitis A IgM Ab Hep Bs Antigen Hep B Core IgM Ab Hepatitis C Antibody Active Medications Generic Name Dose Route Start Last Admin Trade Name Freq PRN Reason Stop Dose Admin Amlodipine Besylate 10 mg 08/21/18 10:00 08/22/18 09:35 Norvasc - PO 10 mg DAILY ANGELINE Administration Carvedilol 25 mg 08/21/18 22:00 08/22/18 09:35 Coreg - PO 25 mg BID ANGELINE Administration Hydrochlorothiazide 25 mg 08/21/18 10:00 08/22/18 09:35 Hctz - PO 25 mg DAILY ANGELINE Administration Ceftriaxone Sodium 50 mls @ 100 mls/hr 08/21/18 12:30 08/22/18 09:35 Ceftriaxone 1 Gm-D5w Bag IVPB 100 mls/hr DAILY ANGELINE Administration Protocol Sodium Chloride 1,000 mls @ 75 mls/hr 08/21/18 14:00 08/21/18 14:20 Normal Saline - IV 75 mls/hr ASDIR ANGELINE Administration Pantoprazole Sodium 40 mg 08/21/18 10:00 08/22/18 09:36 Protonix - PO 40 mg DAILY ANGELINE Administration Prochlorperazine Maleate 25 mg 08/21/18 08:28 Compazine Suppository - NC DAILY PRN NAUSEA AND/OR VOMITING Tramadol HCl 50 mg 08/21/18 08:27 08/22/18 05:49 Ultram - PO 50 mg Q8H PRN Administration PAIN LEVEL 6-10 Valsartan 160 mg 08/21/18 10:00 08/22/18 09:36 Diovan - PO 160 mg DAILY ANGELINE Administration ASSESSMENT/PLAN: 47 year-old female with a PMH significant for HTN, gastritis, iron-deficiency anemia, and s/p cholecystectomy (2007). Presents with epigastric pain and vomiting. Acute exacerbation of recurrent gastritis --previously seen for same problem 04/2017, 08/2017, 12/2017, 02/2018, 2017 --follows regularly with PCP and with GI docs in [facility]; in past month had MRI of pancreas reportedly normal; last EGD on 04/18/[address] Sweet, negative biopsy , findings of mild acid reflux; patient states her gastritis has been worked up on multiple occasions; episodes are triggered by stress --IV fluids, protonix, ultram PRN, compazine PRN --tolerating full liquids, will advance diet Subacute renal infarction --Dr. Chavez, radiologist, amended prior 07/09/18 CT scan: Additional review of the exam demonstrates lack of normal enhancement of the upper and middle thirds of the right kidney which may have been on the basis of acute infarction or acute pyelonephritis. Clinical/laboratory correlation is essential --08/22/18 CTAP: again seen abnormal diminished enhancement of upper and middle thirds of right kidney; given persistence of this finding, most suggestive of subacute infarction Mildly dilated common bile duct s/p cholecystectomy, chronic --09/03/17 CT: 0.8cm CBD --03/11/18 US abdomen: 0.5cm CBD --08/20/18 US abdomen: 0.8cm CBD --08/21/18 CTAP: 0.8cm CBD Leukocytosis --seen on every previous admission --afebrile, cultures negative to date --CXR unremarkable --observe off antibiotics Iron-deficiency anemia --gets regular venofer injections ordered by Dr. Post Hypertension --continue amlodipine, carvedilol, valsartan/HCTZ Low TSH --TSH 0.29 --free T3, free T4 ordered Prolonged QT --avoid QT prolonging agents, e.g. Zofran Hypokalemia --repleted FEN Fluids: PO intake adequate Electrolytes: replete as indicated Nutrition: low sodium Dispo: PCP Dr. Dudley Butler, [facility]; GI Dr. Andrew Post, [facility]; Dr. Fajardo, copyman [phone] or [phone]-continues to require inpatient care. Full code. Visit type - Emergency Visit Emergency Visit: Yes ED Registration Date: 08/21/18 Care time: The patient presented to the Emergency Department on the above date and was hospitalized for further evaluation of their emergent condition. - New Patient This patient is new to me today: No - Critical Care Critical Care patient: No
--- NOTE | 2018-08-22 11:39 | DS ---
Physical Exam: SUBJECTIVE: Patient seen and examined OBJECTIVE: Vital Signs Period Temp Pulse Resp BP Sys/Young Pulse Ox Last 24 Hr 96.4 F-98.3 F 65-84 16-19 121-144/59-91 93-100 PHYSICAL EXAM GENERAL: The patient is awake, alert, and fully oriented, in no acute distress. HEAD: Normal with no signs of trauma. EYES: PERRL, extraocular movements intact, sclera anicteric, conjunctiva clear. ENT: Ears normal, nares patent, oropharynx clear without exudates, moist mucous membranes. NECK: Trachea midline, full range of motion, supple. LUNGS: Breath sounds equal, clear to auscultation bilaterally, no wheezes, no crackles, no accessory muscle use. HEART: Regular rate and rhythm, S1, S2 without murmur, rub or gallop. ABDOMEN: Soft, nontender, nondistended, normoactive bowel sounds, no guarding, no rebound, no hepatosplenomegaly, no masses. EXTREMITIES: 2+ pulses, warm, well-perfused, no edema. NEUROLOGICAL: Cranial nerves II through XII grossly intact. Normal speech, gait not observed. PSYCH: Normal mood, normal affect. SKIN: Warm, dry, normal turgor, no rashes or lesions noted. LABS Laboratory Results - last 24 hr 08/20/18 08/21/18 08/21/18 22:30 14:16 14:16 Hemoglobin A1c % 5.7 TSH 0.29 L Hepatitis A IgM Ab Negative Hep Bs Antigen Negative Hep B Core IgM Ab Negative Hepatitis C Antibody <0.1 HOSPITAL COURSE: Date of Admission:08/21/18 Date of Discharge: 08/22/18 Discharge Summary Reason For Visit: DX-TRANSAMINITIS, GASTRITIS, NAUSEA AND VOMITTING Current Active Problems Gastritis (Acute) Nausea & vomiting (Acute) Transaminitis (Acute) Condition: Good - Instructions Diet, Activity, Other Instructions: You were seen in the Emergency Department today for evaluation of nausea and vomiting. Please review the handout provided at discharge. Follow up with your primary care doctor and personal lines sales rep. Continue to take your medications as directed. Return to the Emergency Department if you develop fevers/chills, inability to tolerate food, worsening symptoms, or any new/concerning symptoms. - Home Medications Comprehensive Discharge Medication List: Ambulatory Orders Amlodipine Besylate 10 mg PO DAILY 07/09/18 Carvedilol [Coreg -] 25 mg PO DAILY 07/09/18 Omeprazole 40 mg PO DAILY 07/09/18 Ondansetron [Zofran Odt -] 4 mg SL TID PRN #10 od.tablet 07/09/18 Valsartan/Hydrochlorothiazide [Valsartan-Hctz 160-25 mg Tab] 1 each PO DAILY
--- NOTE | 2018-08-22 12:32 | PN ---
Progress Note (short form) - Note Progress Note: Patient seen 08/21/18 with consult dictated. Patgient with hx of episodic abdominal pain x years etiology s/p GB. On current admission has elevated LFTs with mid abdominal pain ?CBD stone/ sludge. LFTs are trending down and sono shows slightly dilated CBD. Suspect patient has CBD stone/sludge with episodes of pain ?pancreatitis? Recommend either ERCP (or MRCP) to evaluate further. Discussed with patient who is feeling better and has appt with her GI MD in [facility].
--- NOTE | 2018-08-22 13:32 | CONS ---
DATE OF CONSULTATION: 08/21/2018 I was asked to evaluate this 47-year-old female admitted with abdominal pain. The patient is a 47-year-old female with a past history of peptic disease including gastritis and reflux, hypertension, anemia, and episodes of abdominal pain of unclear etiology. She has had cholecystectomy in the past. The patient was admitted on this occasion with abdominal pain and noted to have an elevated white count with elevated liver chemistries including an alkaline phosphatase of 246, AST of 63, and ALT of 110. The patient had a normal serum lipase level. Her repeat liver chemistries the following day included AST of 31 and AST of 67 with an alkaline phosphatase of 182. A sonogram shows an 8-mm common bile duct. The patient is not jaundiced. She has no itching. She has no nausea, vomiting, fever, or chills. On exam, she is a well-developed, well-nourished female with a soft abdomen, normoactive bowel sounds, and mild discomfort in the epigastrium. There was no rebound or guarding. Patient appears to have elevated liver chemistries which are trending down. She may have passed a common bile duct stone and may have some stone or sludge in the common bile duct not seen on the sonogram. An MRCP might be helpful in evaluating the duct further, or more ideally an ERCP could be arranged either as an inpatient or outpatient, if she improves, with possible sphincterotomy of sludge and/or stones noted in the duct. It is possible that her episodes of pain have been due to passage of small stones or sludge periodically. At the present time, we will monitor expectantly. MATILDE AMBRIZ M.D. [id number]
[2018-08-22 14:11] VITALS: BP 129/81; PULSE 87; TEMP 98.8
--- NOTE | 2018-08-22 14:27 | DS ---
Physical Exam: SUBJECTIVE: Patient seen and examined. Tolerating full liquids, hungry. Denies abdominal pain, nausea, vomiting. OBJECTIVE: Vital Signs Period Temp Pulse Resp BP Sys/Young Pulse Ox Last 24 Hr 96.4 F-98.8 F 65-87 18-19 121-144/59-81 93-98 PHYSICAL EXAM GENERAL: The patient is awake, alert, and fully oriented. HEAD: Normal with no signs of trauma. LUNGS: Breath sounds equal, clear to auscultation bilaterally, no wheezes, no crackles, no accessory muscle use. HEART: Regular rate and rhythm, S1, S2 ABDOMEN: Soft, nontender, nondistended, normoactive bowel sounds, no guarding, no rebound, no CVA tenderness EXTREMITIES: 2+ pulses, warm, well-perfused, no edema. NEUROLOGICAL: Cranial nerves II through XII grossly intact. Normal speech, steady gait Laboratory Tests - All Tests- Entire Visit 08/20/18 08/20/18 08/20/18 13:54 13:54 14:35 WBC 16.8 H RBC 5.29 H Hgb 15.8 H Hct 48.3 H MCV 91.2 MCH 29.8 MCHC 32.7 RDW 14.4 Plt Count 410 MPV 7.8 Absolute Neuts (auto) 14.6 Neutrophils % 87.1 H Lymphocytes % 8.0 Monocytes % 3.4 L Eosinophils % 0.0 Basophils % 1.5 PT with INR INR Sodium 138 Potassium 3.7 Chloride 97 L Carbon Dioxide 26 Anion Gap 15 BUN 16 Creatinine 0.8 Creat Clearance w eGFR > 60 Random Glucose 137 H D Hemoglobin A1c % Lactic Acid Calcium 9.9 Magnesium Total Bilirubin 0.8 AST 63 H D ALT 110 H D Alkaline Phosphatase 246 H Total Protein 8.0 Albumin 4.9 Lipase TSH Urine Color Yellow Urine Appearance Clear Urine pH 7.0 Ur Specific [place] 1.010 Urine Protein Negative Urine Glucose (UA) Negative Urine Ketones Negative Urine Blood Trace-intact H Urine Nitrite Negative Urine Bilirubin Negative Urine Urobilinogen 0.2 Ur Leukocyte Esterase Negative Urine RBC 2-5 Urine WBC None seen Ur Epithelial Cells Few Amorphous Urates None seen Urine Bacteria None seen Hepatitis A IgM Ab Hep Bs Antigen Hep B Core IgM Ab Hepatitis C Antibody 08/20/18 08/20/18 08/20/18 14:35 22:30 22:30 WBC RBC Hgb Hct MCV MCH MCHC RDW Plt Count MPV Absolute Neuts (auto) Neutrophils % Lymphocytes % Monocytes % Eosinophils % Basophils % PT with INR INR Sodium Potassium Chloride Carbon Dioxide Anion Gap BUN Creatinine Creat Clearance w eGFR Random Glucose Hemoglobin A1c % Lactic Acid 0.8 Calcium Magnesium Total Bilirubin AST ALT Alkaline Phosphatase Total Protein Albumin Lipase 110 TSH Urine Color Urine Appearance Urine pH Ur Specific [place] Urine Protein Urine Glucose (UA) Urine Ketones Urine Blood Urine Nitrite Urine Bilirubin Urine Urobilinogen Ur Leukocyte Esterase Urine RBC Urine WBC Ur Epithelial Cells Amorphous Urates Urine Bacteria Hepatitis A IgM Ab Negative Hep Bs Antigen Negative Hep B Core IgM Ab Negative Hepatitis C Antibody <0.1 08/21/18 08/21/18 08/21/18 07:03 07:03 07:03 WBC 19.1 H RBC 4.91 Hgb 14.7 Hct 44.4 MCV 90.4 MCH 29.9 MCHC 33.1 RDW 14.0 Plt Count 374 MPV 8.1 Absolute Neuts (auto) 15.6 Neutrophils % 82.2 Lymphocytes % 9.8 Monocytes % 7.6 Eosinophils % 0.1 Basophils % 0.3 PT with INR 12.9 INR 1.16 Sodium 134 L Potassium 3.0 L Chloride 97 L Carbon Dioxide 25 Anion Gap 12 BUN 10 Creatinine 0.6 Creat Clearance w eGFR > 60 Random Glucose 127 H Hemoglobin A1c % Lactic Acid Calcium 9.4 Magnesium Total Bilirubin 0.7 AST 31 D ALT 67 H D Alkaline Phosphatase 182 H D Total Protein 6.9 Albumin 4.3 Lipase TSH Urine Color Urine Appearance Urine pH Ur Specific [place] Urine Protein Urine Glucose (UA) Urine Ketones Urine Blood Urine Nitrite Urine Bilirubin Urine Urobilinogen Ur Leukocyte Esterase Urine RBC Urine WBC Ur Epithelial Cells Amorphous Urates Urine Bacteria Hepatitis A IgM Ab Hep Bs Antigen Hep B Core IgM Ab Hepatitis C Antibody 08/21/18 08/21/18 08/21/18 09:53 14:16 14:16 WBC RBC Hgb Hct MCV MCH MCHC RDW Plt Count MPV Absolute Neuts (auto) Neutrophils % Lymphocytes % Monocytes % Eosinophils % Basophils % PT with INR INR Sodium Potassium Chloride Carbon Dioxide Anion Gap BUN Creatinine Creat Clearance w eGFR Random Glucose Hemoglobin A1c % 5.7 Lactic Acid Calcium Magnesium 1.9 Total Bilirubin AST ALT Alkaline Phosphatase Total Protein Albumin Lipase TSH 0.29 L Urine Color Urine Appearance Urine pH Ur Specific [place] Urine Protein Urine Glucose (UA) Urine Ketones Urine Blood Urine Nitrite Urine Bilirubin Urine Urobilinogen Ur Leukocyte Esterase Urine RBC Urine WBC Ur Epithelial Cells Amorphous Urates Urine Bacteria Hepatitis A IgM Ab Hep Bs Antigen Hep B Core IgM Ab Hepatitis C Antibody HOSPITAL COURSE: Date of Admission:08/21/18 Date of Discharge: 08/22/18 Pre hospital course This is a 47 y/o woman with a past medical history of Gastritis, GERD, HTN, Anemia (Iron Infusions). Who presents to the ED with epigastric pain and non- bloody emesis. Patient states she had a headache last Tuesday that triggered her vomiting and epigastric pain.The patient reports taking her Zofran and antacids without relief. Patient reports seeing her GI over the summer, had an EGD in - was told that she has GERD. She reports having an appointment with her GI next month for a follow up. The patient reports never having a Colonoscopy due to her age. Patient has a familial hx Colorectal Ca, Stomach Ca. Patient denies fever, chills, cough, SOB, dizziness, CP, palpitations, diarrhea, hematochezia, melena, hematuria, dysuria. LMP- at present time ER course was notable for: (1) WBC 16.8 (2) Transaminitis- AST 63, ALT 110, alk phos 246 (3) BP- 200/101~ 189/77~ 146/93 Subsequent hospital course by problem list 47 year-old female with a PMH significant for HTN, gastritis, iron-deficiency anemia, and s/p cholecystectomy (2007). Presents with epigastric pain and vomiting. Acute exacerbation of recurrent gastritis --previously seen for same problem 04/2017, 08/2017, 12/2017, 02/2018, 2017 --follows regularly with PCP and with GI docs in [facility]; in past month had MRI of pancreas reportedly normal; last EGD on 04/18/[address] Sweet, negative biopsy , findings of mild acid reflux; patient states her gastritis has been worked up on multiple occasions; episodes are triggered by stress --treated with IV fluids, protonix, ultram PRN, compazine PRN, and slow advancement of diet with complete resolution of symptoms Subacute renal infarction --Dr. Chavez, radiologist, amended prior 07/09/18 CT scan: Additional review of the exam demonstrates lack of normal enhancement of the upper and middle thirds of the right kidney which may have been on the basis of acute infarction or acute pyelonephritis. Clinical/laboratory correlation is essential --08/22/18 CTAP: again seen abnormal diminished enhancement of upper and middle thirds of right kidney; given persistence of this finding, most suggestive of subacute infarction --when discussed with patient she stated she was told about this condition about four years ago at [facility]; was told she might need to follow up with renal specialist at some point Mildly dilated common bile duct s/p cholecystectomy, chronic --09/03/17 CT: 0.8cm CBD --03/11/18 US abdomen: 0.5cm CBD --08/20/18 US abdomen: 0.8cm CBD --08/21/18 CTAP: 0.8cm CBD --afebrile throughout hospital stay --LFTs were very mildly elevated on admission and trending down at the time of discharge --seen and evaluated by GI who recommends outpatient follow up for possible ERCP Leukocytosis --seen on every previous admission --afebrile, cultures negative to date --CXR unremarkable --observed off antibiotics Iron-deficiency anemia --gets regular venofer injections --called Dr. Fajardo, patient's radio board operator announcer: discussed leukocytosis, anemia, h/o renal infarct, and patient's report of 46 lb unintentional weight loss over past 2 years; patient has appointment with her on 09/04 Hypertension --continued amlodipine, carvedilol, valsartan/HCTZ Low TSH --TSH 0.29 --free T3, free T4 ordered but not resulted at time of discharge Prolonged QT --QTc 515 --avoid QT prolonging agents, e.g. Zofran Hypokalemia --repleted Minutes to complete discharge: 35 Discharge Summary Reason For Visit: DX-TRANSAMINITIS, GASTRITIS, NAUSEA AND VOMITTING Current Active Problems Gastritis (Acute) Nausea & vomiting (Acute) Transaminitis (Acute) Condition: Good - Instructions Diet, Activity, Other Instructions: A copy of your discharge summary will be sent to your radio board operator announcer, Dr. Taryn Fajardo. She is aware of your hospitalization. Be sure to follow up with her on September 04, your next scheduled appointment. Advance your diet as tolerated. Stay well-hydrated. Return to the emergency department for any new or worsening symptoms. Disposition: HOME - Home Medications Comprehensive Discharge Medication List: Ambulatory Orders Amlodipine Besylate 10 mg PO DAILY 07/09/18 Carvedilol [Coreg -] 25 mg PO DAILY 07/09/18 Omeprazole 40 mg PO DAILY 07/09/18 Ondansetron [Zofran Odt -] 4 mg SL TID PRN #10 od.tablet 07/09/18 Valsartan/Hydrochlorothiazide [Valsartan-Hctz 160-25 mg Tab] 1 each PO DAILY This patient is new to me today: No Emergency Visit: Yes ED Registration Date: 08/21/18 Care time: The patient presented to the Emergency Department on the above date and was hospitalized for further evaluation of their emergent condition. Critical Care patient: No - Discharge Referral Referred to [facility] Med P.C.: No
== END 2018-08-22 15:40 | disposition home or self-care (01) | DRG 392 ==
LOC: FER 13:53 → FM/S 19:19 → OBSVTOIN 08-21 14:28
PROVIDERS: ADMIT Internal Medicine; ATTEND Nurse Practitioner Acute Care
DX: K29.00 Acute gastritis without bleeding (principal); I10 Essential (primary) hypertension; F17.210 Nicotine dependence, cigarettes, uncomplicated; Z80.0 Family history of malignant neoplasm of digestive organs; Z80.41 Family history of malignant neoplasm of ovary; K21.9 Gastro-esophageal reflux disease without esophagitis; R74.0 Nonspecific elevation of levels of transaminase and lactic acid dehydrogenase [LDH]; I45.81 Long QT syndrome; E87.6 Hypokalemia; D72.829 Elevated white blood cell count, unspecified; D50.9 Iron deficiency anemia, unspecified; K83.8 Other specified diseases of biliary tract
CPT/HCPCS: 36415; 71046-TC-FY; 74177-TC; 76705-TC; 80053; 80074; 81003; 81015; 83036; 83605; 83690; 83735; 84443; 85025; 85027; 85610; 87040; 87086; 93005; 99285-25; G0378; J0131; J7030